=== PATIENT | male | born 1990 | race African-American/Black ===

== ENCOUNTER → 2023-04-07 11:22 | Outpatient (BNVA) | payer OTHER, SELFPAY | PROVIDERS: Visit Provider Physician Assistant ==

== ENCOUNTER 2023-05-03 10:47 | Outpatient (AMB) | payer OTHER, SELFPAY ==
--- NOTE | 2023-05-03 10:48 | A.OFFVIS_ITS ---
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 His goal is to get healthy. He reports first being concerned about her weight when he got to 400 lbs - last year. He has tried multiple methods of weight loss including gym time without permanent results. He lives with his parents. He works 3 jobs over 7 days per week. 3pm - 11 pm and then 11pm - 9am. He wakes at: 2pm bed at 9am Will drink Powerade and Mountain DEW only until about 9 pm. 9pm - Fast food - dbl cheeseburger, fries, chicken sandwich and large HiC. 11:30 pm- eat bag of candy and Powerade or Soda Alcohol intake: few times per year,tobacco: none, marijuana: none Exercise:went to track yesterday - walked 4 laps. Used to play football up to 2016. GILDARDO:0 ESS:12 GERD:0 QOL:60 PFSH Surgical History History of surgical removal of keloid Family History Mother No problems noted. Father No problems noted. Brother No problems noted. Brother No problems noted. Brother No problems noted. Sister No problems noted. Sister No problems noted. Sister No problems noted. Sister No problems noted. Social History Alcohol intake: never Patient Tobacco Use Status: Never used Tobacco Physical Exam Vital Signs: Last Vital Signs Temp 97.6 F 05/03/23 10:49 Pulse 89 05/03/23 10:49 BP 146/81 H 05/03/23 10:49 Pulse Ox 96 05/03/23 10:49 Oxygen Delivery Method Room Air 05/03/23 10:49 BMI result Body Mass Index 60.9 Const General: cooperative, no acute distress and well developed Nutritional Appearance: obese Orientation/consciousness: patient oriented x3 HEENT Head: Yes normal to inspection Neck Neck: Yes normal visual inspection Thyroid: Thyroid normal Resp Effort & Inspection: normal respiratory effort Auscultation: clear to auscultation bilaterally Cardio Rate: regular rate Rhythm: regular rhythm Heart sounds: S1 normal heart sound present, S2 normal heart sound present and no murmurs GI Inspection: No distended and Yes obesity Palpation (GI): Soft to palpation, nontender and no guarding Skin General skin exam: no rashes or lesions noted and other (warm and dry) Wounds: no wounds Hair: normal Neuro General: patient oriented x3 Extrem General: Yes no pedal edema and Yes no calf tenderness Psych Attitude: cooperative Thought process: Normal thought process present Thought content: Normal thought content present Insight: Good insight present (Psych) Judgement: Good judgement present (Psych) Assessment & Plan Assessment & Plan (1) Morbid obesity: Code(s): E66.01 - Morbid (severe) obesity due to excess calories Plan: This is a 32 yo man with morbid obesity who will start SWL program to prepare for bariatric surgery. Blood work and h pylori have been ordered. He is being scheduled for RD and BH initial consultations. He will start SWL classes and watch at 3 classes before her next appt with Yahaira. 1. Adequate sleep of 7-8 hours per night discussed - advised him to work less hours to be able to sleep and exercise enough. 2. Healthy meal plan - stop skipping meals, stop fast food and stop all sweetened drinks All meals/MR's need to take 20 minutes to complete 2:30 pm - 30 gram shake 5:30 pm - 30 gram shake 9 pm- dinner of 6 oz lean protein, 8 oz vegetable, 1 serving fruit -- needs to learn to cook his own meals 11:30 pm - bar or yogurt 2 am - shake 5 am - bar or yogurt 3 shakes 1 meal 2 bar or yogurt every day. Exercise - start with walking 30 minutes or doing LS 2 miles videos 5-7 d/week. Pt will purchase body composition analyzer Zoetouch, (recommended list given to patient) and weight herself weekly. Next appt with me in 3 weeks. Text me with any questions and weekly weights. Patient is morbidly obese and is not considered stable at this time.?I spent a total of 60 minutes reviewing/updating records, examining the patient and counseling the patient on weight management as detailed above. (2) G6PD deficiency: Code(s): D75.A - Qneuzlh-0-vnifplryc dehydrogenase (G6PD) deficiency without anemia (3) Pre-op evaluation: Code(s): Z01.818 - Encounter for other preprocedural examination (4) Daytime somnolence: Code(s): R40.0 - Somnolence Orders: Orders Vitamin B12 and Folate Today D75.A - Ctfaqxe-4-cqkujtklh dehydrogenase (G6PD) deficiency without anemia, E66.01 - Morbid (severe) obesity due to excess calories, Z01.818 - Encounter for other preprocedural examination Comprehensive Met. Panel Today D75.A - Vwcbwjv-7-ecmcqjsxx dehydrogenase (G6PD) deficiency without anemia, E66.01 - Morbid (severe) obesity due to excess calories, Z01.818 - Encounter for other preprocedural examination C Reactive Protein Today D75.A - Hdqvosy-8-xqmpqvwif dehydrogenase (G6PD) defi ciency without anemia, E66.01 - Morbid (severe) obesity due to excess calories, Z01.818 - Encounter for other preprocedural examination Ferritin Today D75.A - Wjtyyor-7-xgexbwizc dehydrogenase (G6PD) deficiency without anemia, E66.01 - Morbid (severe) obesity due to excess calories, Z01.818 - Encounter for other preprocedural examination Hemoglobin A1c Today D75.A - Dsphlvs-6-wztwhfwjd dehydrogenase (G6PD) deficiency without anemia, E66.01 - Morbid (severe) obesity due to excess calories, Z01.818 - Encounter for other preprocedural examination Insulin Today D75.A - Rfxrnsh-7-ynfzezsvn dehydrogenase (G6PD) deficiency without anemia, E66.01 - Morbid (severe) obesity due to excess calories, Z01.818 - Encounter for other preprocedural examination IRON PROFILE Today D75.A - Dgzefmn-5-zwugfdcof dehydrogenase (G6PD) deficiency without anemia, E66.01 - Morbid (severe) obesity due to excess calories, Z01.818 - Encounter for other preprocedural examination Lipid Panel Today D75.A - Xdwpdna-3-fyottyyyo dehydrogenase (G6PD) deficiency without anemia, E66.01 - Morbid (severe) obesity due to excess calories, Z01.818 - Encounter for other preprocedural examination PTHI Today D75.A - Lkpcrsb-6-odgkmfokp dehydrogenase (G6PD) deficiency without anemia, E66.01 - Morbid (severe) obesity due to excess calories, Z01.818 - Encounter for other preprocedural examination TSH reflex Free T4 Today D75.A - Rrqvnqw-3-iwryxqivg dehydrogenase (G6PD) deficiency without anemia, E66.01 - Morbid (severe) obesity due to excess calories, Z01.818 - Encounter for other preprocedural examination Vitamin A Today D75.A - Uvdvlfd-0-rsygnotad dehydrogenase (G6PD) deficiency without anemia, E66.01 - Morbid (severe) obesity due to excess calories, Z01.818 - Encounter for other preprocedural examination Vitamin B1 Today D75.A - Gcvfjfz-6-ykhrkzhsu dehydrogenase (G6PD) deficiency without anemia, E66.01 - Morbid (severe) obesity due to excess calories, Z01.818 - Encounter for other preprocedural examination Vitamin D 25-OH Total Today D75.A - Lfamrcp-0-zixmlambn dehydrogenase (G6PD) deficiency without anemia, E66.01 - Morbid (severe) obesity due to excess calories, Z01.818 - Encounter for other preprocedural examination Zinc Today D75.A - Pfvvqqd-1-mgyhpahtl dehydrogenase (G6PD) deficiency without anemia, E66.01 - Morbid (severe) obesity due to excess calories, Z01.818 - Encounter for other preprocedural examination Complete Blood Count Auto Diff Today D75.A - [place]-4-zbuuyrxsy dehydrogenase (G6PD) deficiency without anemia, E66.01 - Morbid (severe) obesity due to excess calories, Z01.818 - Encounter for other preprocedural examination RT home sleep study Today E66.01 - Morbid (severe) obesity due to excess calories, R40.0 - Somnolence Referrals Behavioral Health Referral D75.A - Wdspmlf-9-zsgydmxot dehydrogenase (G6PD) deficiency without anemia, E66.01 - Morbid (severe) obesity due to excess calories, Z01.818 - Encounter for other preprocedural examination Nutrition/Dietitian Referral D75.A - Epovbmj-3-mgnamqjkm dehydrogenase (G6PD) deficiency without anemia, E66.01 - Morbid (severe) obesity due to excess calories, Z01.818 - Encounter for other preprocedural examination Coding Level of Care Code New Pt Level 5 (98563) Diagnoses Morbid obesity E66.01 G6PD deficiency D75.A Pre-op evaluation Z01.818 Daytime somnolence R40.0
[2023-05-03 10:49] VITALS: BP 146/81; PULSE 89; TEMP 36.4; O2SAT 96; BMI 60.9
== END 2023-05-03 12:13 | disposition home or self-care (01) ==
PROVIDERS: Visit Provider Physician Assistant
DX: E66.01 Morbid (severe) obesity due to excess calories (principal); Z68.44 Body mass index [BMI] 60.0-69.9, adult; D75.A Glucose-6-phosphate dehydrogenase (G6PD) deficiency without anemia; R40.0 Somnolence
CPT/HCPCS: 99205

== ENCOUNTER → 2023-05-03 10:47 | Outpatient (BNVA) | payer OTHER, SELFPAY | PROVIDERS: Visit Provider Physician Assistant | DX: Z01.818 Encounter for other preprocedural examination (principal); E66.01 Morbid (severe) obesity due to excess calories; D75.A Glucose-6-phosphate dehydrogenase (G6PD) deficiency without anemia; R40.0 Somnolence; Z68.44 Body mass index [BMI] 60.0-69.9, adult | CPT/HCPCS: 99202 ==

== ENCOUNTER → 2023-06-15 11:10 | Outpatient (BNVA) | payer OTHER, SELFPAY | PROVIDERS: Visit Provider Dietitian, Registered | DX: E66.01 Morbid (severe) obesity due to excess calories (principal); D75.A Glucose-6-phosphate dehydrogenase (G6PD) deficiency without anemia; Z68.43 Body mass index [BMI] 50.0-59.9, adult; Z71.3 Dietary counseling and surveillance | CPT/HCPCS: 97802 ==

== ENCOUNTER 2023-06-17 10:34 | Outpatient (AMB) | payer OTHER, SELFPAY ==
--- NOTE | 2023-06-17 10:36 | A.OFFVIS_ITS ---
Intake VS Expanded 06/17/23 10:40 Height 6 ft 3 in Weight 479 lb 12.8 oz BMI 60.0 BP 171/75 H Blood Pressure Location Lt radial Blood Pressure Position Sitting Pulse 97 Pulse Source Pulse Oximeter Temp 97.3 F Temperature Source Tympanic Pulse Oximetry 95 Oxygen Delivery Method Room Air Body Fat 235.0 Body Fat Percentage 49.0 Free Fat Mass 244.8 Muscle Mass 233.0 Visceral Mass 38.0 Water Mass 188.8 BMR 3,759 Intake Visit Reasons: (OV) f/u SWL Allergies No Known Allergies Allergy (Verified 06/17/23 10:41) Medication List - Last Reconciled 06/17/23 by Teresa Bender PA-C cholecalciferol (vitamin D3) 1,250 mcg PO QWEEK HPI HPI Comments History of Present Illness Details This is the patients second appt for SWL. Starting weight was 478 lbs on 05/03/23. TBWL is 7.2 lbs. Meal plan:NOT following the plan we created 9:30 am - Premier shake 12 pm- quest bar 3pm - small bag of chips, water 7pm - chicken breast and mixed vegetables. water or Mountain Dew bag of candy after dinner Exercise plan: walks daily ? calories Pre op work up completed as follows: SWL classes - / appts -Karla 07/14 appts - follow up needs to be scheduled today H pylori - will do today Labs, CXR and ECG - not done yet ULS and UGI - not ordered yet - 07/14 COUNT INCLUDES THE [facility] Surgical History History of surgical removal of keloid Family History Mother No problems noted. Father No problems noted. Brother No problems noted. Brother No problems noted. Brother No problems noted. Sister No problems noted. Sister No problems noted. Sister No problems noted. Sister No problems noted. Social History Alcohol intake: never Patient Tobacco Use Status: Never used Tobacco Physical Exam Vital Signs: Last Vital Signs Temp 97.3 F 06/17/23 10:40 Pulse 97 06/17/23 10:40 BP 171/75 H 06/17/23 10:40 Pulse Ox 95 06/17/23 10:40 Oxygen Delivery Method Room Air 06/17/23 10:40 BMI result Body Mass Index 60.0 Assessment & Plan Assessment & Plan (1) Morbid obesity: Code(s): E66.01 - Morbid (severe) obesity due to excess calories Plan: Not following our meal plan or exercise plan yet and substituting candy and chips for meals. 9:30 a- shake 11:30 a- shake 2 pm- yogurt 4:30 -pm shake 7pm - meal (did not discuss specifics) 9-10 pm - bar Exercise - walk for 300 calories or LS 1 or 2 mile to start - 5d/week. Will text me exericse routine next week and I will adjust per his needs. I think he understands now that what he has been doing has not been working and he needs to change his habits. Next appt with me in 3 weeks. Patient is morbidly obese and is not considered stable at this time. I spent minutes in total with patient reviewing/updating records, examining the patient and counseling the patient on weight management as detailed above. Orders: Orders ECG 12 lead EKG Today E66.01 - Morbid (severe) obesity due to excess calories, Z01.818 - Encounter for other preprocedural examination XR chest 2V Today E66.01 - Morbid (severe) obesity due to excess calories, Z01.818 - Encounter for other preprocedural examination Coding Level of Care Code Est Pt Level 4 (79590) Diagnoses Morbid obesity E66.01
[2023-06-17 10:40] VITALS: BP 171/75; PULSE 97; TEMP 36.3; O2SAT 95; BMI 60.0
[2023-06-20 10:54] LABS: H Pylori Breath Test Negative (Negative)
== END 2023-06-17 11:10 | disposition home or self-care (01) ==
PROVIDERS: Visit Provider Physician Assistant
DX: E66.01 Morbid (severe) obesity due to excess calories (principal); Z68.44 Body mass index [BMI] 60.0-69.9, adult
CPT/HCPCS: 99214

== ENCOUNTER → 2023-06-17 10:34 | Outpatient (BNVA) | payer OTHER, SELFPAY | PROVIDERS: Visit Provider Physician Assistant | DX: E66.01 Morbid (severe) obesity due to excess calories (principal); Z11.0 Encounter for screening for intestinal infectious diseases; Z68.44 Body mass index [BMI] 60.0-69.9, adult | CPT/HCPCS: 83013; 99212 ==

== ENCOUNTER → 2023-07-07 10:47 | Outpatient (BNVA) | payer OTHER, SELFPAY | PROVIDERS: Visit Provider Dietitian, Registered | DX: E66.01 Morbid (severe) obesity due to excess calories (principal); Z68.43 Body mass index [BMI] 50.0-59.9, adult; Z71.3 Dietary counseling and surveillance | CPT/HCPCS: 97803 ==

== ENCOUNTER 2023-07-11 10:45 | Outpatient (AMB) | payer OTHER, SELFPAY ==
--- NOTE | 2023-07-11 10:11 | A.OFFWM_ITS ---
Intake Intake Visit Reasons: VIDEO Intake Allergies No Known Allergies Allergy (Verified 06/17/23 10:41) [facility] Surgical History History of surgical removal of keloid Family History Mother No problems noted. Father No problems noted. Brother No problems noted. Brother No problems noted. Brother No problems noted. Sister No problems noted. Sister No problems noted. Sister No problems noted. Sister No problems noted. Social History Alcohol intake: never Patient Tobacco Use Status: Never used Tobacco Behavioral Health Assessment Weight Management Therapy Therapy Notes Details Pt is a 32 years old male, who presents for initial behavioral health assessment as part of surgical weight-loss program. PT denied any history of mental health treatment and or past hospitalization/crisis for behavioral health. Denies any safety concerns around SI and/or self-other harm, also there is no history of substance use reported. There is also no evidence for stress/emotional-eating, and scores from BES suggest minimal risk for binge eating behavior. PHQ- scores also showed no active symptoms/concerns with depression. Mental status exam is withing normal limits, suggesting person's functioning is not impaired. At this time patient is cleared from the behavioral health standpoint. Presenting Concerns Referral Source WMP Provider. PT sees Teresa Irvin Reason for referral Completion of behavioral health assessment as part of process for weight-loss surgery. Precipitating Event Obesity and overall health. Living Situation Current Living Situation Relative's/Guardian's Mahi (PT lives with parents and d) Satisfied with current living situation? Yes Comments PT lives with his parents. Food/Weight/Diet Expectations of change PT wants to be at his healthy weight and adopt healthier eating habits. History/Relationship with food PT reports he tends to eat at night. Also used to reward himself with food at times (for example after a good week) . Example of meals before starting the program Breakfast: skip. at times would drink Gatorade or a soda. Lunch: @5pm Fast food ([facility] [employer]) Dinner: @11pm while at work - fast food. Snacks: Candy/cakes/any sweets between 6 pm and 12, then chips or any other snacks from 1 to 6 am. History/Relationship with weight PT reports he's always been big. He played football until college and when stop playing/going to the gym consistently in 2014 he started gaining more weight. Lowest weight in past 10 was about 300Lbs. highest weight was 512Lbs 2021. Binge Eating0 Do you frequently eat large amounts of food in short periods of time, not feeling physically hungry? No Do you feel out of control when you eat a large amount of food in a short period of time? No Do you eat large amounts of food rapidly and typically alone? No Night Eating Do you wake up at least once during the night to eat? No If you wake up in the night, do you find that it is necessary to eat something in order to fall back asleep? No Do you have little or no appetite in the morning and feel very hungry in the evening, often overeating between dinner and when you go to bed? Yes Social History Family history and relationship Single, no children. He has 2 brothers and 3 sister. He lives with parents and siblings. 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 Developmental history and status Had speech therapy in elementary. Social support Parents Community support None. Spiritism/Spirituality Zoroastrianism. Cultural/Ethnic information Black ( and [place]) Legal Involvement and History Current or historical involvement with the legal system? None. Education Highest grade completed PT is few credits short to finish bachelors in Business. Preferred learning style Verbal Currently enrolled in educational program? No Interested in further educational program? Yes Educational Interests/Skills Business. 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 No Meaningful activities Play drums Financial Situation Describe current financial situation Comfortable Service Service? No Mental Health and Addiction Treatment Current/Past substance abuse? No Current/Past addictive behavior concerns? No Psychiatric history Never in treatment. Denies any past/current safety concerns around SI, self/other-harm. Medical and Physical Health Summary Additional Medical History not covered in history None reported Sexual History concerns None reported Physical exam in the last year? Yes Pain Screening Current pain? No Pain in the last few months? No Medications Is the patient compliant with medications? Not applicable Does the patient have Ferreira Guardian in place? Not applicable Does the patient use complimentary health approaches? No Trauma/Abuse History History of trauma? No Questionnaires PHQ-9 Over the last 2 weeks, how often have you been bothered by any of the following problems? 1. Little interest or pleasure in doing things: not at all 2. Feeling down, depressed, or hopeless: not at all 3. Trouble falling or staying asleep, or sleeping too much: not at all 4. Feeling tired or having little energy: not at all 5. Poor appetite or overeating: not at all 6. Feeling bad about yourself - or that you are a failure or have let yourself or your family down: not at all 7. Trouble concentrating on things, such as reading the newspaper or watching television: several days 8. Moving or speaking so slowly that other people could have noticed. Or the opposite - being so fidgety or restless that you have been moving around a lot more than usual: not at all 9. Thoughts that you would be better off or of hurting yourself in some way: not at all Total score: 1 Depression Screening Interpretation: Negative 00185 - PHQ-9 Billing: Yes Source: Developed by Drs. Chai Ruiz, Rosalind Bond, Kalia Aviles and colleagues, with an educational lexy from [employer]. Binge Eating Scale Group 1 A. I don't feel self-conscious about my wt. or body size when I'm with others. B. I feel concerned about how I look to others, but it normally does not make me fell disappointed with myself C. I do get self-conscious about my appearance and wt. which makes me feel disappointed in myself. D. I feel very self-conscious about my wt. and frequently I feel intense shame and disgust for myself. I try to avoid social contacts because of my self- consciousness. Response Group 1: B Group 2 A. I don't have any difficulty eating slowly in the proper manner. B. Although I seem to gobble down foods, I don't end up feeling stuffed because of eating to much. C. At times, I tend to eat quickly and then, I feel uncomfortably full afterwards. D. I have the habit of bolting down my food, without really chewing it. When this happens I usually feel uncomfortably stuffed because I've eaten to much. Response Group 2: A Group 3 A. I feel capable to control my eating urges when I want to. B. I feel like I have failed to control my eating more than the average person. C. I feel utterly helpless when it comes to feeling in control of my eating urges. D. Because I feel so helpless about controlling my eating I have become very desperate about trying to get control. Response Group 3: A Group 4 A. I don't have the habit of eating when I'm bored. B. I sometimes eat when I'm bored, but often I'm able to get busy and get my mind off food. C. I have a regular habit of eating when I'm bored, but occasionally, I can use some other activity to get my mind off eating. D. I have a strong habit of eating when I'm bored. Nothing seems to help me breath the habit. Response Group 4: A Group 5 A. I'm usually physically hungry when I eat something. B. Occasionally, I eat something on impulse even though I really am not hungry. C. I have the regular habit of eating foods, that I might not really enjoy, to satisfy a hungry feeling even though physically, I don't need the food. D. Although I'm not physically hungry, I get a hungry feeling in my mouth that only seems to be satisfied when I eat a food, like sandwich, that fills my mouth. Sometimes, when I eat the food to satisfy my mouth hunger, I then spit the food out so I won't gain weight. Response Group 5: B Group 6 A. I don't feel any guilt or self-hate after I overeat. B. After I overeat, occasionally I feel guilt or self-hate. C. Almost all the time I experience strong guilt or self-hate after I overeat. Response Group 6: A Group 7 A. I don't lose total control of my eating when dieting even after periods when I overeat. B. Sometimes when I eat a forbidden food on a diet, I feel like I blew it and eat even more. C. Frequently, I have the habit of saying to myself, I've blown it now, why not go all the way, when I overeat on a diet. When that happens I eat more. D. I have a regular habit of starting a strict diets for myself but I break the diets by going on an eating binge. My life seems to be either a feast or famine. Response Group 7: B Group 8 A. I rarely eat so much food that I feel uncomfortably stuffed afterwards. B. Usually about once a month, I each such a quantity of food, I end up feeling very stuffed. C. I have regular periods during the month when I eat large amounts of food, either at mealtime or at snacks. D. I eat so much food that I regularly feel quite uncomfortable after eating and sometimes a bit nauseous. Response Group 8: A Group 9 A. My level of calorie intake does not go up very high or go down very low on a regular basis. B. Sometimes after I overeat, I will try to reduce my caloric intake to almost nothing to compensate for the excess calories I've eaten. C. I have a regular habit of overeating during the night. It seems that my routine is not to be hungry in the morning but overeat in the evening. D. In my adult years, I have had week-long periods where I practically starve myself. This follows periods when I overeat. It seems I live a life of either feast or famine. Response Group 9: A Group 10 A. I usually am able to stop eating when I want to. I know when enough is enough. B. Every so often, I experience a compulsion to eat which I can't seem to control. C. Frequently, I experience strong urges to eat which I seem unable to control, but at other times I can control my eating urges. D. I feel incapable of controlling urges to eat. I have a fear of not being able to stop eating voluntarily. Response Group 10: A Group 11 A. I don't have any problem stopping eating when I feel full. B. I usually can stop eating when I feel full but occasionally overeat leaving me feeling uncomfortably stuffed. C. I have a problem stopping eating once I start and usually I feel uncomfortably stuffed after I eat a meal. D. Because I have a problem not being able to stop eating when I want, I sometimes have to induce vomiting to relieve my stuffed feeling. Response Group 11: A Group 12 A. I seem to eat just as much when I'm with others, Family social gatherings as when I'm by myself. B. Sometimes, when I'm with other persons, I don't eat as much as I want to eat because I'm self-conscious about my eating. C. Frequently, I eat only a small amount of food when others are present, because I'm very embarrassed about my eating. D. I feel so ashamed about overeating that I pick times to overeat when I know no one will see me. I feel like a closet eater. Response Group 12: A Group 13 A. I eat three meals a day with only an occasional between meal snack. B. I eat 3 meals a day, but I also normally snack between meals. C. When I am snacking heavily, I get in the habit of skipping regular meals. D. There are regular periods when I seem to be continually eating, with no planned meals. Response Group 13: C Group 14 A. I don't think much about trying to control unwanted eating urges. B. At least some of the time, I feel my thoughts are pre-occupied with trying to control my eating urges. C. I feel that frequently I spend much time thinking about how much I ate or about trying not to eat anymore. D. It seems to me that most of my waking hours are pre-occupied by thoughts ab out eating or not eating. I feel like I'm constantly struggling not to eat. Response Group 14: A Group 15 A. I don't think about food a great deal. B. I have strong craving for food but they last only for brief periods of time. C. I have days when I can't seem to think about anything else but food. D. Most of my days seem to be pre-occupied with thoughts about food. I feel like I live to eat. Response Group 15: A Group 16 A. I usually know whether or not I'm physically hungry. I take the right portion of food to satisfy me. B. Occasionally, I feel uncertain about knowing whether or not I'm physically hungry. A these times it's hard to know how much food I should take to satisfy me. C. Even though I might know how many calories I should eat, I don't have any idea what is a normal amount of food for me. Response Group 16: A Binge Eating Score: 5 Score less than 17 Minimal Risk Score between 18-26 Moderate Risk Score between 27-46 High Risk Assessment & Plan Assessment & Plan (1) Eating disorder: Code(s): F50.9 - Eating disorder, unspecified Qualifiers: Eating disorder type: unspecified eating disorder Qualified Code(s): F50.9 - Eating disorder, unspecified Plan: After completing the assessment and comparing scores from Binge eating scale and PHQ9, at this time, this sports writer has no concerns patient's mental status. Client is cleared and there is no need for follow up. Pt has been provided with strategies for mindful eating, organization tips to create steady meal schedule following program's meal plan and exercise expectations. He was advised about available resources if ever in need to access additional support and has been encouraged client to participate in post-op groups. Telehealth Telehealth Location of provider rendering services: other (Home office. [place], [place].) Location of patient: address on file Patient Identification confirmed using: Name, : Yes Telehealth method: video Patient verbally consented to treatment: Yes Patient verbally consented to billing insurance company: Yes Patient informed of any privacy concerns related to visit: Yes Minutes spent on Phone/Video with Pt.: 60 Coding Level of Care Code New Pt Tele Psytx >53 mins (24987) Patient Type New Diagnoses Eating disorder, unspecified type F50.9 Eating disorder type: unspecified eating disorder Time Spent (min) 60
--- OUTSIDE RECORDS SUMMARY | 2023-07-11 10:46 | XMS_ITS | Continuity of Care Document ---
Author Name Unknown Organization [facility] ter Address [address] [place] [id number]- Care Team Providers Care Supervisor Cell Operation Name Role Phone Teresa MASTERS, Clark Peterson Primary Care Physician Encounter [facility] Date(s): 01/20/20 - 01/29/[address] [address]- [facility] Encounter Diagnosis Pneumonia(Final) - 01/20/20 Discharge Disposition: A-D/C Home Attending Physician: Jessee Faust MD Admitting Physician: Benito King MD Referring Physician: Not on Staff, Referring MD Allergies, Adverse Reactions, Alerts No Known Medication Allergies Medications No Known Medications Problem List Condition Effective Dates Status Health Status Inform ant Viral pneumonia(Confirmed) Active Results Radiology Reports * Exam Date Time Procedure Performing Provider Status 01/25/20 8:57 AM Chest Portable Yuliet Holley ( Verified) Notes: (Chest Portable) Reason For Exam: Shortness of Breath RESULT: Chest Portable Chest Portable INDICATION/CLINICAL QUESTION: Hypoxic respiratory failure. Positive COVID 19 test. TECHNIQUE: AP chest 0837 hours 01/25/2020. COMPARISON: 01/20/2020. FINDINGS: LINES AND TUBES: Absent. LUNGS AND PLEURA: Patchy opacities mid and lower lung similar to prior examination. No effusion or pneumothorax. HEART AND MEDIASTINAL CONTOURS: Normal. BONES AND SOFT TISSUES: No acute abnormality.. IMPRESSION: 1. Bilateral lung disease consistent with the patient's known COVID 19 infection. There has been no definite change since the prior examination. 2. No pleural effusion. WSN: [id number] Ordering Physician: Jessee Faust Dictated By: Maciel Merlos MD Dictated Date/Time: 01/25/20 9:01 am Reviewed By: Maciel Merlos MD Signed By: Maciel Merlos MD Signed Date/Time: 01/25/20 9:01 am Transcribed By: LUIGI Transcribed Date/Time: 01/25/20 8:58 am * Exam Date Time Procedure Performing Provider Status 01/20/20 9:24 PM Chest Portable Margaret Zhang; Jose Alfredo (Cristela ified) Notes: (Chest Portable) Reason For Exam: Shortness of Breath RESULT: Chest Portable Chest Portable Reason: Shortness of Breath; Clinical Question(s): CHF COMPARISON: None. FINDINGS: LINES AND TUBES: None. LUNGS AND PLEURA: Low lung volumes with mild basilar atelectasis. There is mixed interstitial-alveolar opacity overlying both lower lung rivera, worse on the right where the hemidiaphragm is obscured. No pleural effusion. No pneumothorax. HEART, MEDIASTINUM AND RAHAT: Heart is normal in size. Normal mediastinal and hilar contour. BONES AND SOFT TISSUES: No acute abnormality. IMPRESSION: Bilateral lower lobe pneumonia. A Terrell message has been communicated via the [employer] system on 01/20/2020 9:28 PM, Message ID [id number]. WSN: [id number] Ordering Physician: Neha Parra Dictated By: Nilesh Watkins MD Dictated Date/Time: 01/20/20 9:28 pm Reviewed By: Nilesh Watkins MD Signed By: iNlesh Watkins MD Signed Date/Time: 01/20/20 9:28 pm Transcribed By: LUIGI Transcribed Date/Time: 01/20/20 9:26 pm Vital Signs Most recent to oldest [Reference Range]: 1 2 3 Height 191 cm (01/29/20 2:21 PM) 191 cm (01/29/20 9:25 AM) 191 cm (01/29/20 4:42 AM) Weight 172 kg (01/22/20 2:27 PM) 172.7 kg (01/22/20 8:49 AM) 175 kg (01/21/20 2:52 PM) Oxygen Saturation [94-100 %] 95 % (01/29/20 2:21 PM) 95 % (01/29/20 9:25 AM) 97 % (01/29/20 4:42 AM) Pulse Rate [55-90 bpm] 94 bpm *H* (01/29/20 2:21 PM) 94 bpm *H* (01/29/20 9:25 AM) 85 bpm (01/29/20 4:42 AM) Body Mass Index [18.5-24.99] 47.34 *>HHI* (01/22/20 8:49 AM) 47.97 *>HHI* (01/21/20 2:52 PM) Blood Pressure [90-138/55-84 mm Hg] 114/62mm Hg (01/29/20 2:21 PM) 141/69mm Hg *H* (01/29/20 9:25 AM) 110/64mm Hg (01/29/20 4:42 AM) Respiratory Rate [16-30 br/min] 19 br/min (01/29/20 2:21 PM) 18 br/min (01/29/20 9:25 AM) 22 br/min (01/29/20 4:42 AM) Temperature [96.8-100.4 DegF] 98.6 DegF (01/29/20 2:21 PM) 97.8 DegF (01/29/20 9:25 AM) 97.7 DegF (01/29/20 4:42 AM) Liters per Minute 1 L/min (01/29/20 9:25 AM) 2.5 L/min (01/29/20 4:42 AM) 3 L/min (01/28/20 8:27 PM) Mode of Delivery (Oxygen) Room air (01/29/20 2:21 PM) Nasal cannula (01/29/20 9:25 AM) Nasal cannula (01/29/20 4:42 AM) Blood pressure sites Arm, left (01/29/20 2:21 PM) Arm, left (01/29/20 4:42 AM) Arm, left (01/28/20 8:27 PM) Temperature Route Oral (01/29/20 2:21 PM) Oral (01/29/20 9:25 AM) Oral (01/29/20 4:42 AM) Dry Weight 175 kg (01/21/20 2:52 PM) Weight Obtained Via Patient/family stated (01/22/20 2:27 PM) Bed scale (01/22/20 8:49 AM) Sensory deficits None (01/21/20 2:52 PM) Mobility assistance Other: stand by (01/22/20 6:00 PM) Independent, Partial assistance (01/21/20 2:52 PM) Social History Social History Type Response Smoking Status Never smoker entered on: 05/05/16 Sex
== END 2023-07-11 11:00 | disposition home or self-care (01) ==
LOC: HO.HBST 10:45
PROVIDERS: Visit Provider Counselor Mental Health
DX: F50.9 Eating disorder, unspecified (principal)
CPT/HCPCS: 90837

== ENCOUNTER → 2023-07-11 10:45 | Outpatient (BNVA) | payer OTHER, SELFPAY | PROVIDERS: Visit Provider Counselor Mental Health ==

== ENCOUNTER → 2023-07-13 10:25 | Outpatient (REF) | payer OTHER, SELFPAY ==
--- NOTE | ~2023-07-13 | XR_ITS ---
EXAMINATION: XR CHEST CLINICAL INFORMATION: Patient with morbid obesity COMPARISON: None available. TECHNIQUE: 2 views of the chest were obtained. FINDINGS: Examination is technically limited due to obesity but revealed no infiltrates nodules or pleural effusion. Cardiomediastinal silhouette is XR/XR chest 2V IMPRESSION: No active cardiopulmonary disease
--- NOTE | 2023-07-13 10:46 | ECG_ITS ---
Test Reason : morbid obesity Blood Pressure : / mmHG Vent. Rate : 076 BPM Atrial Rate : 076 BPM P-R Int : 192 ms QRS Dur : 092 ms QT Int : 408 ms P-R-T Axes : 030 -01 026 degrees QTc Int : 459 ms Normal sinus rhythm Normal ECG No previous ECGs available Referred By: Teresa Bender Electronically Signed By:YARY CALABRESE
[2023-07-13 10:55] LABS: MANUAL DIFF FLAG NO
[2023-07-13 11:23] LABS: Basophils Absolute Auto 0.1 X10*3/uL (0.0-0.2); Basophils Percent Auto 0.4 % (0-2); Eosinophils Absolute Auto 0.1 X10*3/uL (0.0-0.4); Eosinophils Percent Auto 0.7 % (0-4); Hematocrit 42.3 % (42.0-52.0); Hemoglobin 13.1 g/dl (14.0-18.0); Imm Gran Abs Auto 0.08 X10*3/uL (0.00-0.03); Imm Gran Pct Auto 0.5 % (0.0-0.4); Lymphocytes Absolute Auto 2.1 X10*3/uL (1.2-4.9); Lymphocytes Percent Auto 13.2 % (20-40); Mean Corpuscular Hemoglobin 29.8 pg (27.0-33.0); Mean Corpuscular Volume 96.4 fL (80.0-98.0); Mean Platelet Volume 9.3 fL (9.4-12.4); Monocytes Percent Auto 6.3 % (2-11); Neutrophils Absolute Auto 12.7 x10*3/uL (2.0-8.3); Neutrophils Percent Auto 78.9 % (45-73); Platelet Count 432 X10*3/uL (160-400); Red Blood Count 4.39 X10*6/uL (4.60-5.80); Red Cell Distribution Width 12.5 % (11.0-16.0); White Blood Count 16.1 X10*3/uL (4.8-10.8)
[2023-07-13 12:00] LABS: Estimated Average Glucose 80 mg/dL; Hemoglobin A1c % 4.4 % (<6.0)
[2023-07-13 13:23] LABS: Alanine Aminotransferase 36 U/L (0-40); Albumin Level 3.7 g/dL (3.5-5.0); Alkaline Phosphatase 87 U/L (39-117); Anion Gap 12 (12-20); Aspartate Amino Transferase 30 U/L (5-37); Bilirubin Total 0.5 mg/dL (0.0-1.0); Blood Urea Nitrogen 17 mg/dL (9-16); C Reactive Protein 8.38 mg/dL (< or = 0.50); Calcium 9.5 mg/dL (8.4-10.2); Carbon Dioxide 26 mmol/L (22-29); Chloride 107 mmol/L (96-108); Cholesterol 163 mg/dL (<200); Estimated Glomerular Filt Rate > 60; Glucose Random 85 mg/dL (60-115); HDL Cholesterol 37 mg/dL (>40); Iron 31 mcg/dL (45-160); LDL Cholesterol Calculated 111 mg/dL (<100); Percent Iron Saturation 15 % (15-50); Potassium 4.3 mmol/L (3.3-5.1); Sodium 141 mmol/L (135-145); Total Iron Binding Capacity 212 mcg/dL (228-428); Total Protein 8.3 g/dL (6.5-8.0); Triglycerides 76 mg/dL (<150); Unsaturated Iron Binding 181 ug/dL
[2023-07-13 13:30] LABS: Ferritin 353 ng/mL (20-250); Insulin 57 uU/mL (2-29); TSH reflex Free T4 1.12 uIU/mL (0.32-4.0)
[2023-07-13 13:49] LABS: Folate 5.1 ng/mL (> or = 4.0); Vitamin B12 665 pg/mL (200-900)
[2023-07-14 16:19] LABS: Calcium (PTHI) 9.3 mg/dL (8.6-10.3); PTHI 25 pg/mL (16-77)
[2023-07-16 22:48] LABS: Zinc 71 mcg/dL (60-130)
[2023-07-17 14:57] LABS: Vitamin B1 <6 nmol/L (8-30)
[2023-07-19 10:43] LABS: Vitamin A 35 mcg/dL (38-98)
== END ==
LOC: HO.SL 10:25
PROVIDERS: Visit Provider Physician Assistant
DX: Z01.818 Encounter for other preprocedural examination (principal); R40.0 Somnolence; D75.A Glucose-6-phosphate dehydrogenase (G6PD) deficiency without anemia; E66.01 Morbid (severe) obesity due to excess calories; G47.33 Obstructive sleep apnea (adult) (pediatric)
CPT/HCPCS: 36415; 71046; 80053; 80061; 82306; 82607; 82728; 82746; 83036; 83525; 83540; 83970; 84425; 84443; 84590; 84630; 85025; 86140; 93005; 95806

== ENCOUNTER → 2023-07-13 10:40 | Outpatient (BNV) | payer OTHER, SELFPAY | PROVIDERS: Visit Provider Internal Medicine | DX: G47.33 Obstructive sleep apnea (adult) (pediatric) (principal) | CPT/HCPCS: 95806 ==

== ENCOUNTER 2023-08-12 10:30 | Outpatient (AMB) | payer OTHER, SELFPAY ==
--- NOTE | 2023-08-12 10:14 | A.OFFVIS_ITS ---
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 Exercise - 2 mile walks M-F , 43 minutes and getting easier, has gym membership Meal plan - only drinks seltzer water, very happy with meal plan 9am - shake 11am - bar or yogurt 2pm- shake 4pm - shake' 7pm- meal of chicken breast (not sure of portion size) and green beans this week. 9am - yogurt Pre op work up completed as follows: SWL classes - 8 appts -Karla 07/14, cleared RD appts - follow up willbe scheduled today H pylori - negative Labs - anemia, B1, Vit A and Vit D deficiencies CXR and ECG - both NAD ULS and UGI - not ordered yet SS - 07/14, mild to moderate ZORAN, changing sleep positions and weight loss may be enough treatment per Dr Manning. [facility] Surgical History History of surgical removal of keloid Family History Mother No problems noted. Father No problems noted. Brother No problems noted. Brother No problems noted. Brother No problems noted. Sister No problems noted. Sister No problems noted. Sister No problems noted. Sister No problems noted. Social History Alcohol intake: never Patient Tobacco Use Status: Never used Tobacco Assessment & Plan Assessment & Plan (1) Morbid obesity: Code(s): E66.01 - Morbid (severe) obesity due to excess calories Plan: Great progress with 35 lbs lost, 7%. UGI and ULS ordered today. Exercise - change to Treadmill 5-6 d/week, speed 3.0, incline 2-7, changing every 3 minutes - 400 calories each day Meal plan - measure dinner meal in 12 forks each of protein and veg Discussed SS resutls - will continue to adjust sleep postions, feels rested during the day and sleeps well. Next appt with me in 3 weeks, Patient is still morbidly obese and is not considered stable at this time. I spent 28 minutes in total speaking with the patient via video conference counseling , reviewing records and charting in patients chart. . (2) G6PD deficiency: Code(s): D75.A - Abtoiwz-7-fhlvtampx dehydrogenase (G6PD) deficiency without anemia (3) Daytime somnolence: Code(s): R40.0 - Somnolence Orders: Orders US abdomen comp w elastography Today E66.01 - Morbid (severe) obesity due to excess calories, Z01.818 - Encounter for other preprocedural examination [place] upper GI w air Today E66.01 - Morbid (severe) obesity due to excess calories, Z01.818 - Encounter for other preprocedural examination Telehealth Telehealth Location of provider rendering services: practice address Location of patient: address on file Patient Identification confirmed using: Name, : Yes Telehealth method: video Patient verbally consented to treatment: Yes Patient verbally consented to billing insurance company: Yes Patient informed of any privacy concerns related to visit: Yes Coding Level of Care Code Tele Est Pt Level 4 (01526) Diagnoses Morbid obesity E66.01 G6PD deficiency D75.A Daytime somnolence R40.0
[2023-08-12 10:42] VITALS: BMI 56.5
== END 2023-08-12 10:56 | disposition home or self-care (01) ==
LOC: HO.HBS 10:54
PROVIDERS: Visit Provider Physician Assistant
DX: E66.01 Morbid (severe) obesity due to excess calories (principal); Z68.43 Body mass index [BMI] 50.0-59.9, adult; R40.0 Somnolence
CPT/HCPCS: 99214

== ENCOUNTER → 2023-08-12 10:30 | Outpatient (BNVA) | payer OTHER, SELFPAY | PROVIDERS: Visit Provider Physician Assistant | DX: E66.01 Morbid (severe) obesity due to excess calories (principal); Z01.818 Encounter for other preprocedural examination ==

== ENCOUNTER → 2025-02-15 15:28 | Outpatient (BNVA) | payer OTHER, SELFPAY | PROVIDERS: PCP Physician Assistant Medical; Visit Provider Physician Assistant Surgical ==

== ENCOUNTER 2025-02-20 08:10 | Outpatient (AMB) | payer OTHER, SELFPAY ==
--- OUTSIDE RECORDS SUMMARY | 2025-02-20 08:19 | XMS_ITS | Clinical Summary ---
Author Organization [address] Address [address] [place] [phone] Phone Care Team Providers Care Preschool Assistant Teacher Name Role Phone Davion Zamora Primary Care Provider [phone] Allergies No known active allergies Medications ciclopirox (PENLAC) 8 % solution Apply to affected area daily, remove with rubbing alcohol every 7 days Active semaglutide (Wegovy) 0.25 mg/0.5 mL injection penIndications: Screen for STD (sexually transmitted disease),Routin e general medical examination at a health care facility,Vitami n D deficiency,Subc linical hypothyroidism, Acute pain of right shoulder Inject 0.25 mg under the skin every 7 (seven) days. 2 mL 3 01/26/20 25 Active diclofenac (VOLTAREN) 1 % topical gel Apply 4 gram four times daily to affected joint 100 g 3 01/26/20 25 Active ergocalciferol (VITAMIN D-2) 1,250 mcg (50,000 unit) capsule Take 1 capsule (50,000 Units total) by mouth 1 (one) time per week. 12 capsule 3 01/30/20 25 Active ergocalciferol (VITAMIN D-2) 1,250 mcg (50,000 unit) capsule TAKE ONE CAPSULE BY MOUTH ONCE A WEEK FOR 8 WEEKS 025 Discontinued Active Problems Problem Noted Date Diagnosed Date Vitamin D deficiency 03/23/2023 Keloid 01/18/2023 Subclinical hypothyroidism 02/02/2021 Stutter 01/21/2021 G6PD deficiency 02/18/2020 Prolonged Q-T interval on ECG 02/18/2020 COVID-19 02/15/2020 Overview (10/18/2024): [facility] admission 01/20/20-01/29/20 Encounters Date Type Department Care Team Description 01/29/2025 Telephone Adult Medicine [facility] [address] [place] [phone] Davion Zamora PA 01/25/2025 3:36 PM EDT - 01/25/2025 11:59 PM EDT Hospital Encounter [address] [phone] Routine general medical examination at a health care facility; Screen for STD (sexually transmitted disease); Morbid obesity ([facility] V24, CMS/[facility] V28); Vitamin D deficiency; Subclinical hypothyroidism; Acute pain of right shoulder Discharge Disposition: Home or Self Care 01/25/2025 3:00 PM EDT Office Visit Adult Medicine [address] [phone] Davion Zamora, PA Routine general medical examination at a health care facility (Primary Dx); Screen for STD (sexually transmitted disease); Morbid obesity (CMS/[facility] V24, CMS/[facility] V28); Vitamin D deficiency; Subclinical hypothyroidism; Acute pain of right shoulder from Last 3 Months Immunizations Name Administration Dates Next Due Tdap Tetanus diptheria acell ular pertussis (Boostrix; Adacel) 7yo and older 01/21/2021 Surgical History Surgery Date Site/Laterality Comments OTHER SURGICAL HISTORY 2022 PROCEDURE: SKIN CYST; COMMENT: skin lesion/keloid removed FINGER right hand finger tendon injury jun 2024 and oct 2024 Medical History Medical History Date Comments Covid-19 DX:COVID-19 Morbid obesity with BMI of 6 0.0-69.9, adult (CMS/HCC V24, CMS/[facility] V28) DX:Morbid obesity wit h BMI of 60.0-69.9, adult ([facility]) Family History Medical History Relation Name Comments No Known Problems Brother x3 healthy brothers Hypertension Father No Known Problems Maternal Grandfather No Known Problems Maternal Grandmother No Known Problems Mother No Known Problems Paternal Grandfather Lung cancer Paternal Grandmother smoking No Known Problems Sister x4 healthy sisters Relation Name Status Comments Brother Alive Father Alive Maternal Grandfather Maternal Grandmother Mother Alive Paternal Grandfather Paternal Grandmother Sister Alive Social History Tobacco Use Types Packs/Day Years Used Date Smoking Tobacco: Never Smokeless Tobacco: Never Tobacco Cessation:Counseling Given: Not Answered Alcohol Use Standard Drinks/Week Comments Yes 0 (1 standard drink = 0.6 oz pur e alcohol) occ Housing Instability Answer Date Recorde d Are you worried that in the next 2 months you may not have stable housing? No 01/25/2025 Food Access & Nutrition Answer Date Rec orded Do you have access to a vari ety of food including fruits and vegetables? Yes 01/25/2025 Access to Healthcare Answer Date Record ed Within the last 3 months, ho praful many times did you visit the emergency department for your medical care? 0 01/25/2025 Health Literacy Answer Date Recorded How often do you need to hav e someone help you when you read instructions, pamphlets, or other written material from your doctor or pharmacy? Never 01/25/2025 Caregiver: How often do you need to have someone help you when you read instructions, pamphlets, or other written material from your doctor or pharmacy? Not on file 01/25/2025 Financial Risk Answer Date Recorded How hard is it for you to pa y for the very basics like food, housing, medical care, and air conditioning / heating? Not very hard 01/25/2025 Transportation Answer Date Recorded Has the lack of transportati on kept you from meetings, work, or from getting things needed for daily living? No Has the lack of transportati on kept you from medical appointments or from getting medications? No 01/25/2025 Social Isolation Answer Date Recorded How often do you feel lonely or isolated from th ose around you? Never 01/25/2025 Food Risk Answer Date Recorded Within the past 12 months we worried whether our food would run out before we got money to buy more. Never true 01/25/2025 Within the past 12 months th e food we bought just didn't last and we didn't have money to get more. Never true 01/25/2025 Dependent Care Answer Date Recorded Do you need help finding or paying for care for your loved ones. For example, director of early childhood education or elderly care for an older adult? No 01/25/2025 Education Answer Date Recorded Do you think completing more education or training, like finishing a GED, going to college, or learning a trade, would be helpful for you? Yes 01/25/2025 Employment and Income Answer Date Recor ded During the last four weeks, have you been actively looking for work? No 01/25/2025 Living Situation Answer Date Recorded What is your living situation? 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 on file Not on file Not on fi le Obstetrics History Last Filed Vital Signs Vital Sign Reading Time Taken Comments Blood Pressure 132/78 01/25/2025 3:03 PM EDT Pulse 104 01/25/2025 3:03 PM EDT Temperature 36.5 ??C (97.7 ??F) 01/25/2025 3:03 PM ED T Respiratory Rate 18 01/25/2025 3:03 PM EDT Oxygen Saturation - - Inhaled Oxygen Concentration - - Weight 217 kg (478 lb) 01/25/2025 3:03 PM EDT Height 190.5 cm (6' 3 ) 01/25/2025 3:03 PM EDT Body Mass Index 59.75 01/25/2025 3:03 PM EDT Plan of Treatment Upcoming Encounters Date Type Department Care Team (Late st Contact Info) Description 01/27/2026 3:00 PM EDT Office Visit Adult Medicine [facility] [address] [place] [phone] Davion Zamora PA [address] [place] [address] Health Maintenance Due Date Last Done Comments Hepatitis B Vaccines (1 of 3 - 19+ 3-dose series) 2011 COVID-19 Vaccine (2023-2 5 season) 2024 Depression Screening 01/25/2026 01/25/2025 Social Influencers of Health Screening 01/25/2026 01/25/2025 Cholesterol Screening (Lipid Panel) 01/25/2030 01/25/2025, 03/23/2023 DTaP,Tdap,and Td Vaccines (2 - Td or Tdap) 01/21/2031 01/21/2021 Influenza Vaccine Completed 08/14/2024, 08/13/2023, 08/03/2021 HIV Screening Completed 01/25/2025, 01/26/2021 Hepatitis C Screening Completed 01/25/2025 , 01/26/2021 HIB Vaccines Aged Out No longer eligi ble based on patient's age to complete this topic HPV Vaccines Aged Out No longer eligi ble based on patient's age to complete this topic Hepatitis A Vaccines Aged Out No long er eligible based on patient's age to complete this topic IPV Vaccines Aged Out No longer eligi ble based on patient's age to complete this topic MMR Vaccines Aged Out No longer eligi ble based on patient's age to complete this topic Meningococcal ACWY Vaccine Aged Out N o longer eligible based on patient's age to complete this topic Meningococcal B Vaccine Aged Out No l onger eligible based on patient's age to complete this topic Pneumococcal Vaccine: Pediatrics (0 to 5 Years) and At-Risk Patients (6 to 64 Years) Aged Out No longer eligible b ased on patient's age to complete this topic RSV Immunization Patients Under 20 months Aged Out No longer eligible b ased on patient's age to complete this topic Varicella Vaccines Aged Out No longer eligible based on patient's age to complete this topic Procedures Procedure Name Priority Date/Time Associated Diagnosis Comments CBC WITH AUTO DIFFERENTIAL Routine 01/25/2025 3:57 PM EDT Screen for STD (sexually transmitted disease) Routine general medical examination at a health care facility Vitamin D deficiency Subclinical hypothyroidism Acute pain of right shoulder COMPREHENSIVE METABOLIC PANEL Routine 01/25/2025 3:57 PM EDT Screen for STD (sexually transmitted disease) Routine general medical examination at a health care facility Vitamin D deficiency Subclinical hypothyroidism Acute pain of right shoulder VITAMIN D 25 HYDROXY Routine 01/25/2025 3:57 PM EDT Screen for STD (sexually transmitted disease) Routine general medical examination at a health care facility Vitamin D deficiency Subclinical hypothyroidism Acute pain of right shoulder THYROID STIMULATING HORMONE WITH REFLEX TO FREE T4 AND FREE T3 Routine 01/25/2025 3:57 PM EDT Screen for STD (sexually transmitted disease) Routine general medical examination at a health care facility Vitamin D deficiency Subclinical hypothyroidism Acute pain of right shoulder CBC AND DIFFERENTIAL Routine 01/25/2025 3:57 PM EDT Screen for STD (sexually transmitted disease) Routine general medical examination at a health care facility Vitamin D deficiency Subclinical hypothyroidism Acute pain of right shoulder TREPONEMA PALLIDUM ANTIBODY WITH REFLEX TO RPR AND PARTICLE AGGLUTINATION Routine 01/25/2025 3:57 PM EDT Screen for STD (sexually transmitted disease) HIV 1, 2 ANTIBODY, P24 ANTIGEN WITH REFLEX TO DIFFERENTIATION Routine 01/25/2025 3:57 PM EDT Screen for STD (sexually transmitted disease) HEPATITIS C ANTIBODY Routine 01/25/2025 3:57 PM EDT Screen for STD (sexually transmitted disease) HERPES SIMPLEX VIRUS 1 AND 2, IGG Routine 01/25/2025 3:57 PM EDT Screen for STD (sexually transmitted disease) Routine general medical examination at a health care facility Vitamin D deficiency Subclinical hypothyroidism Acute pain of right shoulder LIPID PANEL WITH REFLEX TO DIRECT LDL Routine 01/25/2025 3:57 PM EDT Screen for STD (sexually transmitted disease) Routine general medical examination at a health care facility Vitamin D deficiency Subclinical hypothyroidism Acute pain of right shoulder CHLAMYDIA TRACHOMATIS AND NEISSERIA GONORRHOEAE PCR Routine 01/25/2025 3:57 PM EDT Screen for STD (sexually transmitted disease) XR SHOULDER 2+ VIEWS RIGHT Routine 01/25/2025 3:46 PM EDT Routine general medical examination at a health care facility Screen for STD (sexually transmitted disease) Morbid obesity (CMS/HCC V24, CMS/HCC V28) Vitamin D deficiency Subclinical hypothyroidism Acute pain of right shoulder from Last 3 Months Results * Hepatitis C antibody (01/25/2025 3:57 PM EDT) Pathologist [facility] Hepatitis C Antibody Negative Negative LAB CHEMISTRY METHOD 01/25/2025 7:32 PM EDT [facility] Blood Venous blood specimen / Unknown Venipuncture / Unknown 01/25/2025 3:57 PM EDT 01/25/2025 3:57 PM EDT [facility] Manuelito Zamora [place] LAB BLOOD ORDERABLES Nadege l Result Performing Organization Address [facility]/ZIP Co de Phone Number [facility] [address] [place] [address], [place] [phone] * HIV 1,2 antibody, p24 antigen with reflex to differentiation (01/25/2025 3:57 PM EDT) [facility] HIV Combo AB/AG Negative Negative LAB CHEMISTRY METHOD 01/25/2025 7:32 PM EDT [facility] Blood Venous blood specimen / Unknown Venipuncture / Unknown 01/25/2025 3:57 PM EDT 01/25/2025 3:57 PM EDT Narrative [facility] - 01/25/2025 7:32 PM EDT This assay is a 4th generation assay allowing for earlier detection of HIV infection by detecting the presence of the HIV-1 p24 antigen as well as the traditional antibodies to HIV type 1 (including group O) and type 2. ??Use of a 4th generation assay is the current CDC recommendation for HIV screening. Davion Zamora [place] LAB BLOOD ORDERABLES Nadege l Result Performing Organization Address City/[facility]/ZIP Co de Phone Number [facility] [address] [place] [address], [place] [phone] * Treponema pallidum antibody with reflex to RPR and particle agglutination (01/25/2025 3:57 PM EDT) T. Pallidum Antibodies Negative Negative LAB CHEMISTRY METHOD 01/25/2025 7:04 PM EDT [facility] Blood Venous blood specimen / Unknown Venipuncture / Unknown 01/25/2025 3:57 PM EDT 01/25/2025 3:57 PM EDT Davion EL LAB BLOOD ORDERABLES Nadege l Result Performing Organization Address City/[facility]/ZIP Co de Phone Number [facility] [address] [place] [address], [place] [phone] * Thyroid stimulating hormone with reflex to free t4 and free t3 (01/25/2025 3:57 PM EDT) [facility] TSH 2.30 0.40 - 4.00 mcIU/mL LAB CHEMISTRY METHOD 01/25/2025 6:53 PM EDT [facility] Blood Venous blood specimen / Unknown Venipuncture / Unknown 01/25/2025 3:57 PM EDT 01/25/2025 3:57 PM EDT Davion EL LAB BLOOD ORDERABLES Nadege l Result Performing Organization Address [facility] Co de Phone Number [facility] [address] [place] [address], [place] [phone] * Lipid panel with reflex to direct LDL (01/25/2025 3:57 PM EDT) [facility] Cholesterol 167 0 - 200 mg/dL LAB CHEMISTRY METHOD 01/25/2025 7:11 PM EDT [facility] Triglycerides 119 0 - 150 mg/dL LAB CHEMISTRY METHOD 01/25/2025 7:11 PM EDT [facility] HDL 48 >=40 mg/dL LAB CHEMISTRY METHOD 01/25/2025 7:11 PM EDT [facility] LDL Calculated 95 0 - 100 mg/dL LAB CHEMISTRY METHOD 01/25/2025 7:11 PM EDT [facility] VLDL Cholesterol [place] 23.8 mg/dL LAB CHEMISTRY METHOD 01/25/2025 7:11 PM EDT [facility] Non HDL Chol. (LDL+VLDL) 119 <145 mg/dL LAB CHEMISTRY METHOD 01/25/2025 7:11 PM EDT [facility] Chol/HDL Ratio 3.5 0.0 - 4.4 LAB CHEMISTRY METHOD 01/25/2025 7:11 PM EDT [facility] Blood Venous blood specimen / Unknown Venipuncture / Unknown 01/25/2025 3:57 PM EDT 01/25/2025 3:57 PM EDT Davion EL LAB BLOOD ORDERABLES Nadege l Result [facility] [address] [place] [address], [place] [phone] * (ABNORMAL) Herpes simplex virus 1 and 2, IgG (01/25/2025 3:57 PM EDT) HSV 1 IgG 31.90(H) <=0.90 index belle LAB CHEMISTRY METHOD 01/26/2025 8:45 AM EDT [facility] HSV-1 IgG Interpretation Positive (A) Negative LAB CHEMISTRY METHOD 01/26/2025 8:45 AM EDT [facility] HSV 2 IgG 1.92(H) <=0.90 index belle LAB CHEMISTRY METHOD 01/26/2025 8:45 AM EDT [facility] HSV-2 IgG Interpretation Positive (A) Negative LAB CHEMISTRY METHOD 01/26/2025 8:45 AM EDT [facility] Blood Venous blood specimen / Unknown Venipuncture / Unknown 01/25/2025 3:57 PM EDT 01/25/2025 3:57 PM EDT us Davion EL LAB BLOOD ORDERABLES Nadege l Result [facility] [address] [place] [address], * (ABNORMAL) CBC auto differential (01/25/2025 3:57 PM EDT) WBC 13.5(H) 4.8 - 10.8 K/mcL LAB HEMETOLOGY METHOD 01/25/2025 6:40 PM EDT [facility] RBC 4.30(L) 4.50 - 5.50 M/mcL LAB HEMETOLOGY METHOD 01/25/2025 6:40 PM EDT [facility] Hemoglobin 12.8(L) 13.5 - 17.5 g/dL LAB HEMETOLOGY METHOD 01/25/2025 6:40 PM EDT [facility] Hematocrit 42.8 42.0 - 54.0 % LAB HEMETOLOGY METHOD 01/25/2025 6:40 PM EDT [facility] MCV 100.0(H) 79.0 - 98.0 FL LAB HEMETOLOGY METHOD 01/25/2025 6:40 PM EDT [facility] MCH 29.9 27.0 - 32.0 pcg LAB HEMETOLOGY METHOD 01/25/2025 6:40 PM EDT [facility] MCHC 29.9(L) 32.0 - 37.0 g/dL LAB HEMETOLOGY METHOD 01/25/2025 6:40 PM EDT [facility] RDW 12.5 11.0 - 15.0 % LAB HEMETOLOGY METHOD 01/25/2025 6:40 PM EDT [facility] Platelets 471(H) 130 - 400 K/mcL LAB HEMETOLOGY METHOD 01/25/2025 6:40 PM EDT [facility] MPV 9.5 7.0 - 11.0 FL LAB HEMETOLOGY METHOD 01/25/2025 6:40 PM EDT [facility] NRBC 0.0 <1.0 % LAB HEMETOLOGY METHOD 01/25/2025 6:40 PM EDT [facility] NRBC Absolute 0.00 <0.10 K/mcL LAB HEMETOLOGY METHOD 01/25/2025 6:40 PM EDT [facility] Neutrophils Relative 75.3 % LAB HEMETOLOGY METHOD 01/25/2025 6:40 PM EDT [facility] Lymphocytes Relative 17.2 % LAB HEMETOLOGY METHOD 01/25/2025 6:40 PM EDT [facility] Monocytes Relative 5.5 % LAB HEMETOLOGY METHOD 01/25/2025 6:40 PM [facility] Eosinophils Relative 1.2 % LAB HEMETOLOGY METHOD 01/25/2025 6:40 PM EDT [facility] Basophils Relative 0.4 % LAB HEMETOLOGY METHOD 01/25/2025 6:40 PM [facility] Immature Granulocytes Relative 0.4 % LAB HEMETOLOGY METHOD 01/25/2025 6:40 PM [facility] Neutrophils Absolute 10.13(H) 1.50 - 7.00 K/mcL LAB HEMETOLOGY METHOD 01/25/2025 6:40 PM [facility] Lymphocytes Absolute 2.31 1.00 - 5.00 K/mcL LAB HEMETOLOGY METHOD 01/25/2025 6:40 PM EDT [facility] Monocytes Absolute 0.74 0.20 - 1.00 K/mcL LAB HEMETOLOGY METHOD 01/25/2025 6:40 PM [facility] Eosinophils Absolute 0.16 0.00 - 0.50 K/mcL LAB HEMETOLOGY METHOD 01/25/2025 6:40 PM T [facility] Basophils Absolute 0.06 0.00 - 0.20 K/[facility] LAB HEMETOLOGY METHOD 01/25/2025 6:40 PM EDT [facility] Immature Granulocytes Absolute 0.05(H) 0.00 - 0.03 K/[facility] LAB HEMETOLOGY METHOD 01/25/2025 6:40 PM EDT [facility] Blood Venous blood specimen / Unknown Venipuncture / Unknown 01/25/2025 3:57 PM EDT 01/25/2025 3:57 PM EDT Davion EL LAB BLOOD ORDERABLES Nadege l Result Performing Organization Address City/[facility]/ZIP Co de Phone Number [facility] [address] [place] [address], [place] [phone] * Chlamydia trachomatis and Neisseria gonorrhoeae molecular study (01/25/2025 3:57 PM EDT) [facility] Neisseria gonorrhoeae PCR Negative Negative LAB MOLECULAR DIAGNOSTICS METHOD 01/26/2025 10:54 AM EDT [facility] Chlamydia trachomatis PCR Negative Negative LAB MOLECULAR DIAGNOSTICS METHOD 01/26/2025 10:54 AM EDT [facility] Swab First stream urine specimen / Unknown Non-blood Collection / Unknown 01/25/2025 3:57 PM EDT 01/25/2025 3:57 PM EDT Davion EL LAB MICROBIOLOGY - GENERA L ORDERABLES Final Result [facility] [address] [place] [address], [place] [phone] * (ABNORMAL) Vitamin D 25 hydroxy (01/25/2025 3:57 PM EDT) Pathologist [facility] Vit D, 25-Hydroxy 4.2(L) 30.0 - 80.0 ng/mL LAB CHEMISTRY METHOD 01/25/2025 6:58 PM EDT [facility] Blood Venous blood specimen / Unknown Venipuncture / Unknown 01/25/2025 3:57 PM EDT 01/25/2025 3:57 PM EDT us Davion EL LAB BLOOD ORDERABLES Nadege l Result [facility] [address] [place] [address], * (ABNORMAL) Comprehensive metabolic panel (01/25/2025 3:57 PM EDT) Sodium 139 133 - 145 mmol/L LAB CHEMISTRY METHOD 01/25/2025 7:11 PM [facility] Potassium 3.8 3.5 - 5.5 mmol/L LAB CHEMISTRY METHOD 01/25/2025 7:11 PM [facility] Chloride 105 96 - 110 mmol/L LAB CHEMISTRY METHOD 01/25/2025 7:11 PM [facility] CO2 28 21 - 32 mmol/L LAB CHEMISTRY METHOD 01/25/2025 7:11 PM [facility] Anion Gap 6 3 - 11 LAB CHEMISTRY METHOD 01/25/2025 7:11 PM [facility] Glucose 120(H) 70 - 100 mg/dL LAB CHEMISTRY METHOD 01/25/2025 7:11 PM [facility] BUN 8 5 - 25 mg/dL LAB CHEMISTRY METHOD 01/25/2025 7:11 PM [facility] Creatinine 1.00 0.70 - 1.30 mg/dL LAB CHEMISTRY METHOD 01/25/2025 7:11 PM [facility] eGFR 103 >=60 mL/min/1. 73m2 LAB CHEMISTRY METHOD 01/25/2025 7:11 PM [facility] Comment:Calculation based on the??Chronic Kidney Disease Epidemiology Collaboration (CKD-EPI) equation refit??without adjustment for race. BUN/Creatinine Ratio 8.0 LAB CHEMISTRY METHOD 01/25/2025 7:11 PM EDT [facility] Calcium 9.0 8.5 - 10.5 mg/dL LAB CHEMISTRY METHOD 01/25/2025 7:11 PM [facility] AST (SGOT) 20 10 - 42 unit/L LAB CHEMISTRY METHOD 01/25/2025 7:11 PM [facility] ALT (SGPT) 24 10 - 60 unit/L LAB CHEMISTRY METHOD 01/25/2025 7:11 PM [facility] Alkaline Phosphatase 108 42 - 121 unit/L LAB CHEMISTRY METHOD 01/25/2025 7:11 PM [facility] Total Protein 8.0 6.0 - 8.0 g/dL LAB CHEMISTRY METHOD 01/25/2025 7:11 PM [facility] Albumin 3.0(L) 3.2 - 5.0 g/dL LAB CHEMISTRY METHOD 01/25/2025 7:[facility] Total Bilirubin 0.6 0.0 - 1.4 mg/dL LAB CHEMISTRY METHOD 01/25/2025 7:11 PM EDT [facility] Blood Venous blood specimen / Unknown Venipuncture / Unknown 01/25/2025 3:57 PM EDT 01/25/2025 3:57 PM EDT us Davion EL LAB BLOOD ORDERABLES Nadege l Result [facility] [address] [place] [address], * XR Shoulder 2+ Views Right (01/25/2025 3:46 PM EDT) Anatomical Region Laterality Modality Upper Extremities, Shoulder Right Radi ographic Imaging 01/25/2025 6:41 PM EDT Impressions 01/25/2025 6:43 PM EDT Mild degenerative changes. -------- FINAL REPORT -------- Dictated By: Oliverio Cline Dictated Date: 01/25/2025 18:41 ET Assigned Physician: Oliverio Cline Reviewed and Electronically Signed By: Oliverio Cline Signed Date: 01/25/2025 18:43 ET Workstation ID: [id number] Transcribed By: Self Edit Transcribed Date: 01/25/2025 18:41 ET Narrative 01/25/2025 6:43 PM EDT XR SHOULDER 2+ VIEWS RIGHT Reason: shoulder pain right shoulder pain Comparison: None FINDINGS: Partially limited evaluation due to overlying soft tissues. ??Mild degenerative changes at acromioclavicular joint. Subchondral cystic changes at the glenoid fossa. ??Glenohumeral joint intact. ??No soft tissue calcifications adjacent to the humeral head. Procedure Note Oliverio Cline MD - 01/25/2025 XR SHOULDER 2+ VIEWS RIGHT Reason: shoulder pain right shoulder pain Comparison: None FINDINGS: Partially limited evaluation due to overlying soft tissues. Milddegenerative changes at acromioclavicular joint. Subchondral cysticchanges at the glenoid fossa. Glenohumeral joint intact. No soft tissuecalcifications adjacent to the humeral head. IMPRESSION: Mild degenerative changes. 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
--- NOTE | 2025-02-20 11:15 | MHC.OFFVISWM ---
VS Expanded 02/20/25 11:36 Height 6 ft 3 in Weight 510 lb BMI 63.7 Body Fat % 50.8 Body Fat Mass 259 Fat Free Mass 250.8 Visceral Fat Rating 42 Body Water % 38.9 Body Water Mass 198.2 Basal Metabolic Rate/Score 3,897 Intake Visit Reasons: TV Re-Est SWL BMI 63.7 Allergies No Known Allergies Allergy (Verified 02/20/25 11:15) Medication List - Last Reconciled 02/20/25 by Pradeep Thornton MD cholecalciferol (vitamin D3) 1,250 mcg PO QWEEK HPI HPI TV Re-Est SWL BMI 63.7: Details: Start time: 11.15am, End time: 11.38am ?I spent 18 minutes speaking with the patient on the phone plus an additional 5 minutes reviewing and updating records for a total of 23 minutes HPI Comments Details: Previous weight [place] efforts[place] [facility] Wakes up: 6am, Sleeps: 10pm Breakfast: skips Lunch: 3-4pm (sandwich) Dinner: 8-9pm (fast food) Snacks: snacks once before lunch (chips), between lunch and dinner (candy) Exercise: none Beverages: Coffee/tea: none, soda: (Pepsi or Mountain Dew a few times per week), juice: Powerade, ETOH: none PFSH Surgical History (Updated 02/15/25 @ 15:59 by Edna Chapa CMA) Hx of hand surgery History of surgical removal of keloid Family History Mother No problems noted. Father No problems noted. Brother No problems noted. Brother No problems noted. Brother No problems noted. Sister No problems noted. Sister No problems noted. Sister No problems noted. Sister No problems noted. Social History (Updated 02/15/25 @ 16:00 by Edna Chapa CMA) Alcohol intake: current Alcohol intake frequency: holidays/special occasions only Patient Tobacco Use Status: Never used Tobacco Telehealth Telehealth Telehealth Platform: Telephone Location of provider rendering services: practice address Location of patient: address on file Patient Identification confirmed using: Name, : Yes Telehealth method: voice only Patient verbally consented to treatment: Yes Patient verbally consented to billing insurance company: Yes Patient informed of any privacy concerns related to visit: Yes Minutes spent on Phone/Video with Pt.: 23 Assessment & Plan Assessment & Plan (1) Morbid obesity: Code(s): E66.01 - Morbid (severe) obesity due to excess calories Category: Medical Plan: 1) buy a blood pressure monitor from [employer], measure your blood pressure every morning and start sending me pictures of your blood pressure readings daily 2) send me a picture of your weight from your scale tomorrow morning 3) Buy the premade Premier protein shakes and the Fit Crunch protein bars from [employer] or [email or web address]. Let me know when you have them
[2025-02-20 11:36] VITALS: BMI 63.7
== END 2025-02-20 11:39 | disposition home or self-care (01) ==
LOC: HO.HBS 08:10
PROVIDERS: PCP Physician Assistant Medical; Visit Provider Surgery
DX: E66.01 Morbid (severe) obesity due to excess calories (principal); E66.813 Obesity, class 3; Z68.44 Body mass index [BMI] 60.0-69.9, adult
CPT/HCPCS: 99213

== ENCOUNTER 2025-05-30 10:16 | Outpatient (AMB) | payer OTHER, SELFPAY ==
--- NOTE | 2025-05-30 10:10 | A.OFFWM_ITS ---
Intake Intake Visit Reasons: TV BH Intake Allergies No Known Allergies Allergy (Verified 02/20/25 11:15) PFSH Surgical History (Updated 02/15/25 @ 15:59 by Edna Chapa CMA) Hx of hand surgery History of surgical removal of keloid Family History Mother No problems noted. Father No problems noted. Brother No problems noted. Brother No problems noted. Brother No problems noted. Sister No problems noted. Sister No problems noted. Sister No problems noted. Sister No problems noted. Social History (Updated 02/15/25 @ 16:00 by Edna Chapa CMA) Alcohol intake: current Alcohol intake frequency: holidays/special occasions only Patient Tobacco Use Status: Never used Tobacco Behavioral Health Assessment Weight Management Therapy Therapy Notes Details PT is a 34 years old male, who presents for initial visit to start BH assessment as part of surgical weight loss program. PT was initially referred by his PCP. However he was in the [facility] previously in 2022 and meet with this provider a BH assessment at which time he was cleared. Presenting Concerns Referral Source P-Provider. Reason for referral Completion of behavioral health assessment as part of process for weight-loss surgery. Precipitating Event Obesity Living Situation Current Living Situation Own At risk of losing current housing? No Satisfied with current living situation? Yes Comments PT lives alone. Food/Weight/Diet Expectations of change PT re-started the program at 520Lbs, and the most recent weight recorded was 449Lbs as of 05/24/25. PT is implementing the following: Current meal plan: Exercise plan: Scale: yes Communication w/ provider: mondays. Social History Family history and relationship PT is single and has no children. Has 4 sisters and 3 brothers. PT reports he comes from a 2-parent household, his parents are both alive. PT reports good family relationships. 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 Developmental history and status Speech issues. Social support Family. Some friends. Community support PCP Buddhism/Spirituality Islam. Cultural/Ethnic information -Guyanese. From [place]. Raised in [place] from couple years. Legal Involvement and History Current or historical involvement with the legal system? None reported Education Highest grade completed Associates degree. Preferred learning style Visual Currently enrolled in educational program? No Interested in further educational program? 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 Employment Employment Status [employer] Wants help to find employment? 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 None Service Service? No Mental Health and Addiction Treatment Current/Past substance abuse? No Comments Alcohol: on special educations or holidays. 1-2 drinks. Cigarettes/Tobacco: None. Cannabis/Edibles: None. Current/Past addictive behavior concerns? No Psychiatric history PT denies ever having been any type of counseling or MH treatment, including crisis or inpatient mental health. There is no history and/or current concern about SI/Sa and self-harm or other harm. Medical and Physical Health Summary Additional Medical History not covered in history None additional. Sexual History concerns None reported Physical exam in the last year? Yes Pain Screening Current pain? No Pain in the last few months? No Medications Is the patient compliant with medications? Yes Does the patient have Ferreira Guardian in place? Not applicable Does the patient use complimentary health approaches? No Trauma/Abuse History History of trauma? No Questionnaires PHQ-9 Over the last 2 weeks, how often have you been bothered by any of the following problems? 1. Little interest or pleasure in doing things: not at all 2. Feeling down, depressed, or hopeless: not at all 3. Trouble falling or staying asleep, or sleeping too much: several days 4. Feeling tired or having little energy: not at all 5. Poor appetite or overeating: not at all 6. Feeling bad about yourself - or that you are a failure or have let yourself or your family down: not at all 7. Trouble concentrating on things, such as reading the newspaper or watching television: not at all 8. Moving or speaking so slowly that other people could have noticed. Or the opposite - being so fidgety or restless that you have been moving around a lot more than usual: not at all 9. Thoughts that you would be better off or of hurting yourself in some way: not at all Total score: 1 Depression Screening Interpretation: Negative (From new PT pack completed on 02/15/25) Depression Screening Done: Yes Source: Developed by Drs. Chai Ruiz, Rosalind Bond, Kalia Aviles and colleagues, with an educational lexy from [employer]. Binge Eating Scale Group 1 A. I don't feel self-conscious about my wt. or body size when I'm with others. B. I feel concerned about how I look to others, but it normally does not make me fell disappointed with myself C. I do get self-conscious about my appearance and wt. which makes me feel disappointed in myself. D. I feel very self-conscious about my wt. and frequently I feel intense shame and disgust for myself. I try to avoid social contacts because of my self- consciousness. Response Group 1: A Group 2 A. I don't have any difficulty eating slowly in the proper manner. B. Although I seem to gobble down foods, I don't end up feeling stuffed because of eating to much. C. At times, I tend to eat quickly and then, I feel uncomfortably full afterwards. D. I have the habit of bolting down my food, without really chewing it. When this happens I usually feel uncomfortably stuffed because I've eaten to much. Response Group 2: A Group 3 A. I feel capable to control my eating urges when I want to. B. I feel like I have failed to control my eating more than the average person. C. I feel utterly helpless when it comes to feeling in control of my eating urges. D. Because I feel so helpless about controlling my eating I have become very desperate about trying to get control. Response Group 3: A Group 4 A. I don't have the habit of eating when I'm bored. B. I sometimes eat when I'm bored, but often I'm able to get busy and get my mind off food. C. I have a regular habit of eating when I'm bored, but occasionally, I can use some other activity to get my mind off eating. D. I have a strong habit of eating when I'm bored. Nothing seems to help me breath the habit. Response Group 4: A Group 5 A. I'm usually physically hungry when I eat something. B. Occasionally, I eat something on impulse even though I really am not hungry. C. I have the regular habit of eating foods, that I might not really enjoy, to satisfy a hungry feeling even though physically, I don't need the food. D. Although I'm not physically hungry, I get a hungry feeling in my mouth that only seems to be satisfied when I eat a food, like sandwich, that fills my mouth. Sometimes, when I eat the food to satisfy my mouth hunger, I then spit the food out so I won't gain weight. Response Group 5: A Group 6 A. I don't feel any guilt or self-hate after I overeat. B. After I overeat, occasionally I feel guilt or self-hate. C. Almost all the time I experience strong guilt or self-hate after I overeat. Response Group 6: A Group 7 A. I don't lose total control of my eating when dieting even after periods when I overeat. B. Sometimes when I eat a forbidden food on a diet, I feel like I blew it and eat even more. C. Frequently, I have the habit of saying to myself, I've blown it now, why not go all the way, when I overeat on a diet. When that happens I eat more. D. I have a regular habit of starting a strict diets for myself but I break the diets by going on an eating binge. My life seems to be either a feast or famine. Response Group 7: B Group 8 A. I rarely eat so much food that I feel uncomfortably stuffed afterwards. B. Usually about once a month, I each such a quantity of food, I end up feeling very stuffed. C. I have regular periods during the month when I eat large amounts of food, either at mealtime or at snacks. D. I eat so much food that I regularly feel quite uncomfortable after eating and sometimes a bit nauseous. Response Group 8: A Group 9 A. My level of calorie intake does not go up very high or go down very low on a regular basis. B. Sometimes after I overeat, I will try to reduce my caloric intake to almost nothing to compensate for the excess calories I've eaten. C. I have a regular habit of overeating during the night. It seems that my routine is not to be hungry in the morning but overeat in the evening. D. In my adult years, I have had week-long periods where I practically starve myself. This follows periods when I overeat. It seems I live a life of either feast or famine. Response Group 9: A Group 10 A. I usually am able to stop eating when I want to. I know when enough is enough. B. Every so often, I experience a compulsion to eat which I can't seem to control. C. Frequently, I experience strong urges to eat which I seem unable to control, but at other times I can control my eating urges. D. I feel incapable of controlling urges to eat. I have a fear of not being able to stop eating voluntarily. Response Group 10: A Group 11 A. I don't have any problem stopping eating when I feel full. B. I usually can stop eating when I feel full but occasionally overeat leaving me feeling uncomfortably stuffed. C. I have a problem stopping eating once I start and usually I feel uncomfortably stuffed after I eat a meal. D. Because I have a problem not being able to stop eating when I want, I sometimes have to induce vomiting to relieve my stuffed feeling. Response Group 11: A Group 12 A. I seem to eat just as much when I'm with others, Family social gatherings as when I'm by myself. B. Sometimes, when I'm with other persons, I don't eat as much as I want to eat because I'm self-conscious about my eating. C. Frequently, I eat only a small amount of food when others are present, because I'm very embarrassed about my eating. D. I feel so ashamed about overeating that I pick times to overeat when I know no one will see me. I feel like a closet eater. Response Group 12: A Group 13 A. I eat three meals a day with only an occasional between meal snack. B. I eat 3 meals a day, but I also normally snack between meals. C. When I am snacking heavily, I get in the habit of skipping regular meals. D. There are regular periods when I seem to be continually eating, with no planned meals. Response Group 13: B Group 14 A. I don't think much about trying to control unwanted eating urges. B. At least some of the time, I feel my thoughts are pre-occupied with trying to control my eating urges. C. I feel that frequently I spend much time thinking about how much I ate or about trying not to eat anymore. D. It seems to me that most of my waking hours are pre-occupied by thoughts about eating or not eating. I feel like I'm constantly struggling not to eat. Response Group 14: B Group 15 A. I don't think about food a great deal. B. I have strong craving for food but they last only for brief periods of time. C. I have days when I can't seem to think about anything else but food. D. Most of my days seem to be pre-occupied with thoughts about food. I feel like I live to eat. Response Group 15: A Group 16 A. I usually know whether or not I'm physically hungry. I take the right portion of food to satisfy me. B. Occasionally, I feel uncertain about knowing whether or not I'm physically hungry. A these times it's hard to know how much food I should take to satisfy me. C. Even though I might know how many calories I should eat, I don't have any idea what is a normal amount of food for me. Response Group 16: A Binge Eating Score: 3 Score less than 17 Minimal Risk Score between 18-26 Moderate Risk Score between 27-46 High Risk Assessment & Plan Assessment & Plan (1) Eating disorder: Code(s): F50.9 - Eating disorder, unspecified Qualifiers: Eating disorder type: unspecified eating disorder Qualified Code(s): F50.9 - Eating disorder, unspecified (2) Pre-bariatric surgery psychological evaluation: Code(s): Z71.89 - Other specified counseling Plan The patient was not cleared today as the assessment was not completed. The patient will return in 2-4 weeks to continue the evaluation. Next appointment: 06/27/25 at 9am PV. Telehealth [facility] Location of provider rendering services: other (Home office. [place], [place]) Location of patient: address on file Patient Identification confirmed using: Name, : Yes Telehealth method: voice only Patient verbally consented to treatment: Yes Patient verbally consented to billing insurance company: Yes Patient informed of any privacy concerns related to visit: Yes Minutes spent on Phone/Video with Pt.: 50 Coding Level of Care Code New Pt Tele Psy Diag Eval (24192) Patient Type New Diagnoses Eating disorder, unspecified type F50.9 Eating disorder type: unspecified eating disorder Pre-bariatric surgery psychological evaluation Z71.89 Time Spent (min) 50
--- OUTSIDE RECORDS SUMMARY | 2025-05-30 11:01 | XMS_ITS | Clinical Summary ---
Author Organization [address] Address [address] [place] [id number] Phone Care Team Providers Care Manager Pharmaceutical Name Role Phone Davion Zamora Primary Care Provider [phone] Allergies No known active allergies Medications ciclopirox (PENLAC) 8 % solution Apply to affected area daily, remove with rubbing alcohol every 7 days Active semaglutide (Wegovy) 0.25 mg/0.5 mL injection penIndications:S creen for STD (sexually transmitted disease),Routine general medical examination at a health care facility,Vitamin D deficiency,Subcl inical hypothyroidism,A cute pain of right shoulder Inject 0.25 mg under the skin every 7 (seven) days. 2 mL 3 5 Active diclofenac (VOLTAREN) 1 % topical gel Apply 4 gram four times daily to affected joint 100 g 3 5 Active ergocalciferol (VITAMIN D-2) 1,250 mcg (50,000 unit) capsule Take 1 capsule (50,000 Units total) by mouth 1 (one) time per week. 12 capsule 3 5 Active Active Problems Problem Noted Date Diagnosed Date Vitamin D deficiency 03/23/2023 Keloid 01/18/2023 Subclinical hypothyroidism 02/02/2021 Stutter 01/21/2021 G6PD deficiency 02/18/2020 Prolonged Q-T interval on ECG 02/18/2020 COVID-19 02/15/2020 Overview (10/18/2024): [facility] admission 01/20/20-01/29/20 Immunizations Name Administration Dates Next Due Tdap [...] BMI of 6 0.0-69.9, adult (CMS/HCC V24, CMS/HCC V28) DX:Morbid obesity wit h BMI of 60.0-69.9, adult ([facility]) Family History Medical History Relation Name Comments [...] ed Within the last 3 months, ho w many times did you visit the emergency [...] care for your loved ones. For example, child care center assistant director or elderly care for an older adult? [...] Start Date Job End Date work at [employer] Not on file Not on file Not on fi le Obstetrics History Last Filed Vital Signs Vital Sign Reading Time Taken Comments Blood Pressure 132/78 01/25/2025 3:03 PM EDT Pulse 104 01/25/2025 3:03 PM EDT Temperature 36.5 C (97.7 F) 01/25/2025 3:03 PM EDT Respiratory Rate 18 01/25/2025 3:03 PM EDT [...] 3:00 PM EDT Office Visit Adult Medicine [facility] [address] [place] [phone] Davion Zamora PA [address] [place] [address] Health Maintenance Due Date Last Done Comments Hepatitis B Vaccines (1 of 3 - 19+ 3-dose series) 2011 COVID-19 Vaccine (2023-2 5 season) 2024 Influenza Vaccine (#1) 2025 , 08/13/2023, 08/03/2021 Social Influencers of Health Screening 01/25/2026 01/25/2025 Cholesterol Screening (Lipid Panel) 01/25/2030 01/25/2025, 03/23/2023 DTaP,Tdap,and Td Vaccines (2 - Td or Tdap) 01/21/2031 01/21/2021 Depression Screening Completed 01/25/2025 HIV Screening Completed 01/25/2025, 01/26/2021 Hepatitis C [...] 5 Years) and At-Risk Patients (6 to 49 Years) Aged Out No longer eligible b ased on patient's age to complete this topic RSV Immunization Patients Under 20 months Aged Out No longer eligible b ased on patient's age to complete this topic Varicella Vaccines Aged Out No longer eligible based on patient's age to complete this topic Procedures Procedure Name Priority Date/Time Associated Diagnosis Comments HEPATITIS C ANTIBODY Routine 01/25/2025 3:57 PM EDT Screen for STD (sexually transmitted disease) HIV 1, 2 ANTIBODY, P24 ANTIGEN WITH REFLEX TO DIFFERENTIATION Routine 01/25/2025 3:57 PM EDT Screen for STD (sexually transmitted disease) LIPID PANEL WITH REFLEX TO DIRECT LDL Routine 01/25/2025 3:57 PM EDT Screen for STD (sexually transmitted disease) Routine general medical examination at a health care facility Vitamin D deficiency Subclinical hypothyroidism Acute pain of right shoulder from Last 3 Months or Most Recently Relevant to Health Maintenance Results * Hepatitis C antibody (01/25/2025 3:57 PM EDT) Hepatitis C Antibody Negative Negative LAB CHEMISTRY METHOD 01/25/2025 7:32 PM EDT [facility] Blood Venous blood specimen / Unknown Venipuncture / Unknown 01/25/2025 3:57 PM EDT 01/25/2025 3:57 PM EDT Davion EL LAB BLOOD ORDERABLES Nadege l Result [facility] [address] [place] [address], * HIV 1,2 antibody, p24 antigen with reflex to differentiation (01/25/2025 3:57 PM EDT) HIV Combo AB/AG Negative Negative LAB CHEMISTRY METHOD 01/25/2025 7:32 PM EDT [facility] Blood Venous blood specimen / Unknown Venipuncture / Unknown 01/25/2025 3:57 PM EDT 01/25/2025 3:57 PM EDT Narrative [facility] - 01/25/2025 7:32 PM EDT This assay is a 4th generation assay allowing for earlier detection of HIV infection by detecting the presence of the HIV-1 p24 antigen as well as the traditional antibodies to HIV type 1 (including group O) and type 2. Use of a 4th generation assay is the current CDC recommendation for HIV screening. Davion EL LAB BLOOD ORDERABLES Nadege l Result [facility] [address] [place] [address], [place] [phone] * Lipid panel with reflex to direct LDL (01/25/2025 3:57 PM EDT) Cholesterol 167 0 - 200 mg/dL LAB CHEMISTRY METHOD 01/25/2025 7:11 PM EDT [facility] Triglycerides 119 0 - 150 mg/dL LAB CHEMISTRY METHOD 01/25/2025 7:11 PM EDT [facility] HDL 48 >=40 mg/dL LAB CHEMISTRY METHOD 01/25/2025 7:11 PM EDT [facility] LDL Calculated 95 0 - 100 mg/dL LAB CHEMISTRY METHOD 01/25/2025 7:11 PM EDT [facility] VLDL Cholesterol [place] 23.8 mg/dL LAB CHEMISTRY METHOD 01/25/2025 7:11 PM EDT [facility] Non HDL Chol. (LDL+VLDL) 119 <145 mg/dL LAB CHEMISTRY METHOD 01/25/2025 7:11 PM EDT [facility] Chol/HDL Ratio 3.5 0.0 - 4.4 LAB CHEMISTRY METHOD 01/25/2025 7:11 PM EDT [facility] Blood Venous blood specimen / Unknown Venipuncture / Unknown 01/25/2025 3:57 PM EDT 01/25/2025 3:57 PM EDT Davion EL LAB BLOOD ORDERABLES Nadege l Result [facility] [address] [place] [address], from Last 3 Months or Most Recently Relevant to Health Maintenance Additional Health Concerns Infection Onset Date Last Indicated Herpes simplex 01/25/2025 01/25/2025 Insurance [facility] [employer] Care Teams Manager Pharmaceutical Relationship Specialty Start Date End Date Davion Zamora PA [address] [place] [phone] PCP - General Internal Medicine 12/30/20
--- OUTSIDE RECORDS SUMMARY | 2025-05-30 11:01 | XMS_ITS ---
Author Name [facility] Organization Unknown Care Team Organization Name Specialty Phone Email Start Date End Da siddhartha [facility] Davion Zamora Primary Care 08/24/2022
== END 2025-05-30 11:01 | disposition home or self-care (01) ==
LOC: HO.HBST 10:16
PROVIDERS: PCP Physician Assistant Medical; Visit Provider Counselor Mental Health
DX: F50.9 Eating disorder, unspecified (principal); Z71.89 Other specified counseling
CPT/HCPCS: 90791

== ENCOUNTER 2025-06-14 08:48 | Outpatient (REF) | payer OTHER, SELFPAY ==
--- NOTE | ~2025-06-14 | XR_ITS ---
EXAMINATION: XR CHEST CLINICAL INFORMATION: E66.01 - Morbid (severe) obesity due to excess calories COMPARISON: 07/13/2023. TECHNIQUE: 2 views of the chest were obtained. FINDINGS: The cardiac, hilar, and mediastinal contours are normal. The lungs are clear bilaterally. There is no pneumothorax or pleural effusion. There is no focal osseous or soft tissue abnormality. XR/XR chest 2V IMPRESSION: Normal chest. Electronically signed by: Austin Hwang MD 06/14/2025 09:42 AM EDT
--- NOTE | 2025-06-14 08:54 | ECG_ITS ---
Test Reason : mor obs Blood Pressure : */* mmHG Vent. Rate : 80 BPM Atrial Rate : 80 BPM P-R Int : 196 ms QRS Dur : 94 ms QT Int : 428 ms P-R-T Axes : 40 -4 39 degrees QTcB Int : 493 ms Normal sinus rhythm Prolonged QT Abnormal ECG When compared with ECG of 13-Jul-2023 10:49, Nonspecific T wave abnormality now evident in Lateral leads Referred By: Pradeep Thornton Electronically Signed By: BRIANNE FONTAINE
[2025-06-14 09:09] LABS: MANUAL DIFF FLAG NO
--- OUTSIDE RECORDS SUMMARY | 2025-06-14 09:43 | XMS_ITS | Clinical Summary ---
Author Organization [address] Address [address] [place] [phone] Phone Care Team Providers Care Cat Scan Tech Name Role Phone Davion Zamora Primary Care Provider [phone] Allergies No known active allergies Medications ciclopirox [...] on ECG 02/18/2020 COVID-19 02/15/2020 Overview (10/18/2024): [facility] admission 01/20/20-01/29/20 Immunizations Name Administration Dates Next [...] obesity wit h BMI of 60.0-69.9, adult ([facility]) Family History Medical History Relation Name [...] your loved ones. For example, child care assistant or elderly care for an older adult? 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 Not on file Not [...] 3:00 PM EDT Office Visit Adult Medicine [address] [phone] Davion Zamora, SIENNA [address] [place] [phone] Health Maintenance Due Date Last Done Comments Hepatitis B Vaccines (1 of 3 - 19+ 3-dose series) 2011 COVID-19 Vaccine ( - 2023-2 5 season) 2024 Influenza Vaccine (#1) 2025 [...] disease) Routine general medical examination at a [facility] facility Vitamin D deficiency Subclinical hypothyroidism Acute pain of right shoulder from Last 3 Months or Most Recently Relevant to Health Maintenance Results * Hepatitis C antibody (01/25/2025 3:57 PM EDT) Hepatitis C Antibody Negative Negative LAB CHEMISTRY METHOD 01/25/2025 7:[address] [facility] Blood Venous blood specimen / Unknown Venipuncture / Unknown 01/25/2025 3:57 PM EDT 01/25/2025 3:57 PM EDT Davion EL LAB BLOOD ORDERABLES Nadege l Result [facility] [address] [place] [address], * HIV 1,2 antibody, p24 antigen with reflex to differentiation (01/25/2025 3:57 PM EDT) HIV Combo AB/AG Negative Negative LAB CHEMISTRY METHOD 01/25/2025 7:[address] [facility] Blood Venous blood specimen / Unknown Venipuncture / Unknown 01/25/2025 3:57 PM EDT 01/25/2025 3:[address] [facility] - 01/25/2025 7:32 PM EDT [...] ORDERABLES Nadege l Result Performing Organization Address City/[facility]/ZIP Co de Phone Number [facility] [address] [place] [address], [place] [phone] * Lipid panel with reflex to direct LDL (01/25/2025 3:57 PM EDT) [facility] Cholesterol 167 0 - 200 mg/dL LAB CHEMISTRY METHOD 01/25/2025 7:[address] [facility] Triglycerides 119 0 - 150 mg/dL LAB CHEMISTRY METHOD 01/25/2025 7:[address] [facility] HDL 48 >=40 mg/dL LAB CHEMISTRY METHOD 01/25/2025 7:[address] [facility] LDL Calculated 95 0 - 100 mg/dL LAB CHEMISTRY METHOD 01/25/2025 7:[address] [facility] VLDL Cholesterol [place] 23.8 mg/dL LAB CHEMISTRY METHOD 01/25/2025 7:[address] [facility] Non HDL Chol. (LDL+VLDL) 119 <145 mg/dL LAB CHEMISTRY METHOD 01/25/2025 7:[address] [facility] Chol/HDL Ratio 3.5 0.0 - 4.4 LAB CHEMISTRY METHOD 01/25/2025 7:[address] [facility] Blood Venous blood specimen / Unknown Venipuncture / Unknown 01/25/2025 3:57 PM EDT 01/25/2025 3:57 PM EDT Davion EL LAB BLOOD ORDERABLES Nadege l Result Performing Organization Address City/[facility]/ZIP Co de Phone Number [facility] [address] [place] [address], from Last 3 Months or Most Recently Relevant to Health Maintenance Additional Health Concerns Infection Onset Date Last Indicated Herpes simplex 01/25/2025 01/25/2025 Insurance [facility] [employer] PLAN Care Teams Cat Scan Tech Relationship Specialty Start Date End Date Davion Zamora PA [address] [place] [address] PCP - General Internal Medicine 12/30/20
[2025-06-14 09:46] LABS: Hematocrit 41.2 % (42.0-52.0); Hemoglobin 12.6 g/dl (14.0-18.0); Imm Gran Abs Auto 0.04 X10*3/uL (0.00-0.03); Imm Gran Pct Auto 0.3 % (0.0-0.4); Lymphocytes Absolute Auto 2.2 X10*3/uL (1.2-4.9); Mean Corpuscular HGB Conc 30.6 g/dl (31.0-36.0); Mean Corpuscular Hemoglobin 29.8 pg (27.0-33.0); Mean Corpuscular Volume 97.4 fL (80.0-98.0); NRBC Abs Auto 0.000 X10*3/uL (0.0-0.012); NRBC Pct Auto 0.0 /100WBC (0.0-0.2); Platelet Count 436 X10*3/uL (160-400); Red Blood Count 4.23 X10*6/uL (4.60-5.80); White Blood Count 11.8 X10*3/uL (4.8-10.8)
[2025-06-14 10:19] LABS: Alanine Aminotransferase 29 U/L (0-40); Albumin Level 3.8 g/dL (3.5-5.0); Alkaline Phosphatase 87 U/L (39-117); Anion Gap 12 (12-20); Aspartate Amino Transferase 30 U/L (5-37); Blood Urea Nitrogen 13 mg/dL (9-16); Calcium 9.1 mg/dL (8.4-10.2); Carbon Dioxide 28 mmol/L (22-29); Chloride 108 mmol/L (96-108); Cholesterol 148 mg/dL (<200); Estimated Glomerular Filt Rate > 60; HDL Cholesterol 30 mg/dL (>40); Iron 33 mcg/dL (45-160); Percent Iron Saturation 16 % (15-50); Potassium 4.1 mmol/L (3.3-5.1); Sodium 144 mmol/L (135-145); Total Iron Binding Capacity 203 mcg/dL (228-428); Total Protein 8.2 g/dL (6.5-8.0); Triglycerides 107 mg/dL (<150); Unsaturated Iron Binding 170 ug/dL
[2025-06-14 10:31] LABS: Hemoglobin A1C 88.6638 umol/L; Total Hemoglobin (HGBA1C) 3314.8326 umol/L
[2025-06-14 10:49] LABS: Ferritin 363 ng/mL (20-250)
[2025-06-14 10:50] LABS: Folate 5.5 ng/mL (> or = 4.0); Vitamin B12 548 pg/mL (200-900)
== END 2025-06-14 08:49 | disposition home or self-care (01) ==
LOC: HO.XRAY 08:48
PROVIDERS: PCP Physician Assistant Medical; Visit Provider Surgery
DX: E66.01 Morbid (severe) obesity due to excess calories (principal)
CPT/HCPCS: 36415; 71046; 80053; 80061; 82306; 82607; 82728; 82746; 83036; 83525; 83540; 84425; 84443; 84590; 84630; 85025; 86140; 93005

== ENCOUNTER → 2025-06-14 08:54 | Outpatient (BNV) | payer OTHER, SELFPAY | PROVIDERS: PCP Physician Assistant Medical; Visit Provider Internal Medicine | DX: R94.31 Abnormal electrocardiogram [ECG] [EKG] (principal); E66.01 Morbid (severe) obesity due to excess calories | CPT/HCPCS: 93010 ==

== ENCOUNTER → 2025-06-14 09:13 | Outpatient (BNV) | payer OTHER, SELFPAY | PROVIDERS: PCP Physician Assistant Medical; Visit Provider Radiology Diagnostic Radiology | DX: E66.9 Obesity, unspecified (principal); Z68.32 Body mass index [BMI] 32.0-32.9, adult | CPT/HCPCS: 71046 ==

== ENCOUNTER 2025-06-27 09:06 | Outpatient (AMB) | payer OTHER, SELFPAY ==
--- NOTE | 2025-06-27 09:00 | A.OFFWM_ITS ---
Intake Intake Visit Reasons: TV BH Intake Part 2 Allergies No Known Allergies Allergy (Verified 02/20/25 11:15) PFSH Surgical History (Updated 02/15/25 @ 15:59 by dEna Chapa CMA) Hx of hand surgery History of surgical removal of keloid Family History Mother No problems noted. Father No problems noted. Brother No problems noted. Brother No problems noted. Brother No problems noted. Sister No problems noted. Sister No problems noted. Sister No problems noted. Sister No problems noted. Social History (Updated 02/15/25 @ 16:00 by Edna Chapa CMA) Alcohol intake: current Alcohol intake frequency: holidays/special occasions only Patient Tobacco Use Status: Never used Tobacco Behavioral Health Assessment Weight Management Therapy Therapy Notes Details PT is a 34 years old male, who presents for a second visit to complete BH assessment as part of surgical weight loss program. PT was in the [facility] previously in 2022 and meet with this provider a BH assessment at which time he was cleared. Presenting Concerns Referral Source [facility]-Provider. Reason for referral Completion of behavioral health assessment as part of process for weight-loss surgery. Precipitating Event Obesity Living Situation Current Living Situation Own At risk of losing current housing? No Satisfied with current living situation? Yes Comments PT lives alone. Food/Weight/Diet Expectations of change PT restarted the program on 03/10/2025 at 520Lbs Weight as of 05/24/25: 449Lbs Recent weight 06/24/25: 438Lbs The initial goal is to be around 400 lbs. before surgery. PT has a goal to adopt a healthy lifestyle and live a longer life, and be at least 250Lbs. PT is implementing the following: Current meal plan: a combination of shakes, bars, and 1 meal per day. (hard at first, but better now). Exercise plan: walk 2 miles on the track field at least 5 days a week. Scale: yes Communication w/ provider: Mondays. History/Relationship with food As he worked a lot, he was used to eating fast food daily, at times, he wouldn't have steady meals, would just order food when hungry, and didn't have portion control. Usually will have 1-2 meals per day and multiple snacks throughout the day, as well as multiple sports drinks. Example of meals before starting the program: Breakfast: skip Lunch: fast food mainly (burger w/ fries and soda) Dinner: Fast food (Turkish food, Popeyes, Means's) Snacks: multiple in the day. (cupcakes, soda, chocolate, candy like Skittles, MMs, chips) Drinks/Liquids: Coffee/tea: none, soda: (Pepsi or Mountain Dew a few times per week), juice: 4 at day either a Powerade/Gatorade or sports drinks, ETOH: none History/Relationship with weight PT reports he has been big most of his life. Younger, he was very active in playing football for college and working out. He notices a weight gain after stopping playing as he was not drafted and became slightly depressed. In the last 10 years, the patient's Lowest weight was 285Lbs and the highest 520Lbs. History/Relationship with dieting [facility]- in 2022. Exercise. Binge Eating Do you frequently eat large amounts of food in short periods of time, not feeling physically hungry? No Do you feel out of control when you eat a large amount of food in a short period of time? No Do you eat large amounts of food rapidly and typically alone? Yes Night Eating Do you wake up at least once during the night to eat? No If you wake up in the night, do you find that it is necessary to eat something in order to fall back asleep? No Do you have little or no appetite in the morning and feel very hungry in the evening, often overeating between dinner and when you go to bed? Yes Social History Family history and relationship PT is single and has no children. Has 4 sisters and 3 brothers. PT reports he comes from a 2-parent household, his parents are both alive. PT reports good family relationships. 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 Developmental history and status Speech issues. Social support Family. Some friends. Community support PCP Mosque/Spirituality Mormon. Cultural/Ethnic information -[place]itanian. From [place]. Raised in [place] couple years. Legal Involvement and History Current or historical involvement with the legal system? None reported Education Highest grade completed Bachelor's degree. Preferred learning style Visual Currently enrolled in educational program? No Interested in further educational program? 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 None Service Service? No Mental Health and Addiction Treatment Current/Past substance abuse? No Comments Alcohol: on special educations or holidays. 1-2 drinks. Cigarettes/Tobacco: None. Cannabis/Edibles: None. Current/Past addictive behavior concerns? No Psychiatric history PT denies ever having been any type of counseling or MH treatment, including crisis or inpatient mental health. There is no history and/or current concern about SI/Sa and self-harm or other harm. Medical and Physical Health Summary Additional Medical History not covered in history None additional. Sexual History concerns None reported Physical exam in the last year? Yes Pain Screening Current pain? No Pain in the last few months? No Medications Is the patient compliant with medications? Yes Does the patient have Ferreira Guardian in place? Not applicable Does the patient use complimentary health approaches? No Trauma/Abuse History History of trauma? No Questionnaires PHQ-9 Over the last 2 weeks, how often have you been bothered by any of the following problems? 1. Little interest or pleasure in doing things: not at all 2. Feeling down, depressed, or hopeless: not at all 3. Trouble falling or staying asleep, or sleeping too much: not at all 4. Feeling tired or having little energy: not at all 5. Poor appetite or overeating: not at all 6. Feeling bad about yourself - or that you are a failure or have let yourself or your family down: not at all 7. Trouble concentrating on things, such as reading the newspaper or watching television: not at all 8. Moving or speaking so slowly that other people could have noticed. Or the opposite - being so fidgety or restless that you have been moving around a lot more than usual: not at all 9. Thoughts that you would be better off or of hurting yourself in some way: not at all Total score: 0 Depression Screening Interpretation: Negative Depression Screening Done: Yes 12071 - PHQ-9 Billing: Yes Source: Developed by Drs. Cahi Ruiz, Rosalind Bond, Kalia Aviles and colleagues, with an educational lexy from [employer]. Binge Eating Scale Group 1 A. I don't feel self-conscious about my wt. or body size when I'm with others. B. I feel concerned about how I look to others, but it normally does not make me fell disappointed with myself C. I do get self-conscious about my appearance and wt. which makes me feel disappointed in myself. D. I feel very self-conscious about my wt. and frequently I feel intense shame and disgust for myself. I try to avoid social contacts because of my self- consciousness. Response Group 1: A Group 2 A. I don't have any difficulty eating slowly in the proper manner. B. Although I seem to gobble down foods, I don't end up feeling stuffed because of eating to much. C. At times, I tend to eat quickly and then, I feel uncomfortably full afterwards. D. I have the habit of bolting down my food, without really chewing it. When this happens I usually feel uncomfortably stuffed because I've eaten to much. Response Group 2: A Group 3 A. I feel capable to control my eating urges when I want to. B. I feel like I have failed to control my eating more than the average person. C. I feel utterly helpless when it comes to feeling in control of my eating urges. D. Because I feel so helpless about controlling my eating I have become very desperate about trying to get control. Response Group 3: A Group 4 A. I don't have the habit of eating when I'm bored. B. I sometimes eat when I'm bored, but often I'm able to get busy and get my mind off food. C. I have a regular habit of eating when I'm bored, but occasionally, I can use some other activity to get my mind off eating. D. I have a strong habit of eating when I'm bored. Nothing seems to help me breath the habit. Response Group 4: A Group 5 A. I'm usually physically hungry when I eat something. B. Occasionally, I eat something on impulse even though I really am not hungry. C. I have the regular habit of eating foods, that I might not really enjoy, to satisfy a hungry feeling even though physically, I don't need the food. D. Although I'm not physically hungry, I get a hungry feeling in my mouth that only seems to be satisfied when I eat a food, like sandwich, that fills my mouth. Sometimes, when I eat the food to satisfy my mouth hunger, I then spit the food out so I won't gain weight. Response Group 5: A Group 6 A. I don't feel any guilt or self-hate after I overeat. B. After I overeat, occasionally I feel guilt or self-hate. C. Almost all the time I experience strong guilt or self-hate after I overeat. Response Group 6: A Group 7 A. I don't lose total control of my eating when dieting even after periods when I overeat. B. Sometimes when I eat a forbidden food on a diet, I feel like I blew it and eat even more. C. Frequently, I have the habit of saying to myself, I've blown it now, why not go all the way, when I overeat on a diet. When that happens I eat more. D. I have a regular habit of starting a strict diets for myself but I break the diets by going on an eating binge. My life seems to be either a feast or famine. Response Group 7: B Group 8 A. I rarely eat so much food that I feel uncomfortably stuffed afterwards. B. Usually about once a month, I each such a quantity of food, I end up feeling very stuffed. C. I have regular periods during the month when I eat large amounts of food, either at mealtime or at snacks. D. I eat so much food that I regularly feel quite uncomfortable after eating and sometimes a bit nauseous. Response Group 8: A Group 9 A. My level of calorie intake does not go up very high or go down very low on a regular basis. B. Sometimes after I overeat, I will try to reduce my caloric intake to almost nothing to compensate for the excess calories I've eaten. C. I have a regular habit of overeating during the night. It seems that my routine is not to be hungry in the morning but overeat in the evening. D. In my adult years, I have had week-long periods where I practically starve myself. This follows periods when I overeat. It seems I live a life of either feast or famine. Response Group 9: A Group 10 A. I usually am able to stop eating when I want to. I know when enough is enough. B. Every so often, I experience a compulsion to eat which I can't seem to control. C. Frequently, I experience strong urges to eat which I seem unable to control, but at other times I can control my eating urges. D. I feel incapable of controlling urges to eat. I have a fear of not being able to stop eating voluntarily. Response Group 10: A Group 11 A. I don't have any problem stopping eating when I feel full. B. I usually can stop eating when I feel full but occasionally overeat leaving me feeling uncomfortably stuffed. C. I have a problem stopping eating once I start and usually I feel uncomfortably stuffed after I eat a meal. D. Because I have a problem not being able to stop eating when I want, I sometimes have to induce vomiting to relieve my stuffed feeling. Response Group 11: A Group 12 A. I seem to eat just as much when I'm with others, Family social gatherings as when I'm by myself. B. Sometimes, when I'm with other persons, I don't eat as much as I want to eat because I'm self-conscious about my eating. C. Frequently, I eat only a small amount of food when others are present, because I'm very embarrassed about my eating. D. I feel so ashamed about overeating that I pick times to overeat when I know no one will see me. I feel like a closet eater. Response Group 12: A Group 13 A. I eat three meals a day with only an occasional between meal snack. B. I eat 3 meals a day, but I also normally snack between meals. C. When I am snacking heavily, I get in the habit of skipping regular meals. D. There are regular periods when I seem to be continually eating, with no planned meals. Response Group 13: B Group 14 A. I don't think much about trying to control unwanted eating urges. B. At least some of the time, I feel my thoughts are pre-occupied with trying to control my eating urges. C. I feel that frequently I spend much time thinking about how much I ate or about trying not to eat anymore. D. It seems to me that most of my waking hours are pre-occupied by thoughts about eating or not eating. I feel like I'm constantly struggling not to eat. Response Group 14: B Group 15 A. I don't think about food a great deal. B. I have strong craving for food but they last only for brief periods of time. C. I have days when I can't seem to think about anything else but food. D. Most of my days seem to be pre-occupied with thoughts about food. I feel like I live to eat. Response Group 15: A Group 16 A. I usually know whether or not I'm physically hungry. I take the right portion of food to satisfy me. B. Occasionally, I feel uncertain about knowing whether or not I'm physically hungry. A these times it's hard to know how much food I should take to satisfy me. C. Even though I might know how many calories I should eat, I don't have any idea what is a normal amount of food for me. Response Group 16: A Binge Eating Score: 3 Score less than 17 Minimal Risk Score between 18-26 Moderate Risk Score between 27-46 High Risk Assessment & Plan Assessment & Plan (1) Adjustment disorder: Code(s): F43.20 - Adjustment disorder, unspecified Qualifiers: Adjustment disorder type: unspecified type Qualified Code(s): F43.20 - Adjustment disorder, unspecified (2) Encounter for psychological assessment prior to bariatric surgery: Code(s): Z71.89 - Other specified counseling Plan Following completion of the assessment, a review of the Binge Eating Scale and PHQ-9 scores, mental status evaluation, and patient self-report, there are no current behavioral health risks or concerns that would preclude proceeding with bariatric surgery. The patient is cleared from a behavioral health perspective and will return in approximately 6?8 weeks for preoperative support. * Next appointment: 08/15/25 at 9:00 AM (phone visit). Telehealth Telehealth Telehealth Platform: [employer] Location of provider rendering services: other (Home office. [place], [place]) Location of patient: address on file Patient Identification confirmed using: Name, : Yes Telehealth method: voice only Patient verbally consented to treatment: Yes Patient verbally consented to billing insurance company: Yes Patient informed of any privacy concerns related to visit: Yes Minutes spent on Phone/Video with Pt.: 55 Coding Level of Care Code Established Pt Tele Psytx >53 mins (19962) Patient Type Established Diagnoses Adjustment disorder, unspecified type F43.20 Adjustment disorder type: unspecified type Encounter for psychological assessment prior to bariatric surgery Z71.89 Additional Codes PHQ-9 - 50956 - PHQ-9 Billing: Yes ([id number]) Time Spent (min) 55
--- OUTSIDE RECORDS SUMMARY | 2025-06-27 10:25 | XMS_ITS | Clinical Summary ---
Author Organization [address] Address [address] [place] [phone] Phone Care Team Providers Care People Greeter Name Role Phone Davion Zamora Primary Care Provider [phone] Allergies No known active allergies Medications ciclopirox [...] on ECG 02/18/2020 COVID-19 02/15/2020 Overview (10/18/2024): [facility] [place] admission 01/20/20-01/29/20 Immunizations Name Administration Dates Next [...] obesity wit h BMI of 60.0-69.9, adult ([facility]) Family History Medical History Relation Name Comments [...] care for your loved ones. For example, early childhood director or elderly care for an older [...] Start Date Job End Date work at [employer] Not on file Not on file Not [...] 3:00 PM EDT Office Visit Adult Medicine [address] [phone] Davion Zamora PA [address] [place] [phone] Health Maintenance Due Date Last Done Comments Hepatitis B Vaccines (1 of 3 - 19+ 3-dose series) 2011 COVID-19 Vaccine (2023-2 5 season) 2025 Influenza Vaccine (#1) 2025 , 08/13/2023, 08/03/2021 [...] Procedure Name Priority Date/Time Associated Diagnosis Comments EXTERNAL CLINICAL LAB 06/14/2025 EXTERNAL CLINICAL LAB 06/14/2025 EXTERNAL CLINICAL LAB 06/14/2025 EXTERNAL CLINICAL LAB 06/14/2025 HEPATITIS C ANTIBODY Routine 01/25/2025 3:57 PM EDT Screen for STD (sexually transmitted disease) HIV 1, 2 ANTIBODY, P24 ANTIGEN WITH REFLEX TO DIFFERENTIATION Routine 01/25/2025 3:57 PM EDT Screen for STD (sexually transmitted disease) LIPID PANEL WITH REFLEX TO DIRECT LDL Routine 01/25/2025 3:57 PM EDT Screen for STD (sexually transmitted disease) Rout[facility] Vitamin D deficiency Subclinical hypothyroidism Acute pain of right shoulder from Last 3 Months or Most Recently Relevant to Health Maintenance Results * External clinical lab (06/14/2025) Only the most recent of4 resultswithin the time period is included. Provider [facility] LAB BLOOD ORDERABLES Fin al Result * Hepatitis C antibody (01/25/2025 3:57 PM EDT) [facility] Hepatitis C Antibody Negative Negative LAB CHEMISTRY METHOD 01/25/2025 7:32 PM EDT [facility] Blood Venous blood specimen / Unknown Venipuncture / Unknown 01/25/2025 3:57 PM EDT 01/25/2025 3:57 PM EDT Davion EL LAB BLOOD ORDERABLES Nadege l Result [facility] [address] [place] [address], * HIV 1,2 antibody, p24 antigen with reflex to differentiation (01/25/2025 3:57 PM EDT) [facility] HIV Combo AB/AG Negative Negative LAB CHEMISTRY METHOD 01/25/2025 7:32 PM EDT [facility] Blood Venous blood specimen / Unknown Venipuncture / Unknown 01/25/2025 3:57 PM EDT 01/25/2025 3:57 PM EDT Narrative [facility] - 01/25/2025 7:32 PM EDT [...] screening. Davion EL LAB BLOOD ORDERABLES Nadege dalton Result [facility] [address] [place] [address], * Lipid panel with reflex to direct LDL (01/25/2025 3:57 PM EDT) [facility] Cholesterol 167 0 - 200 mg/dL LAB CHEMISTRY METHOD 01/25/2025 7:11 PM EDT [facility] Triglycerides 119 0 - 150 mg/dL LAB CHEMISTRY METHOD 01/25/2025 7:11 PM EDT [facility] HDL 48 >=40 mg/dL LAB CHEMISTRY METHOD [facility] LDL Calculated 95 0 - 100 mg/dL LAB CHEMISTRY METHOD 01/25/2025 7:11 PM EDT [facility] VLDL Cholesterol [place] 23.8 mg/dL LAB CHEMISTRY METHOD 01/25/2025 7:11 PM EDT [facility] Non HDL Chol. (LDL+VLDL) 119 <145 mg/dL LAB CHEMISTRY METHOD 01/25/2025 7:11 PM EDT [facility] Chol/HDL Ratio 3.5 0.0 - 4.4 LAB CHEMISTRY METHOD 01/25/2025 7:11 PM EDT [facility] Blood Venous blood specimen / Unknown Venipuncture / Unknown 01/25/2025 3:57 PM EDT 01/25/2025 3:57 PM EDT Davion EL LAB BLOOD ORDERABLES Nadege l Result [facility] [address] [place] [address], from Last 3 Months or Most Recently Relevant to Health Maintenance Additional Health Concerns Infection Onset Date Last Indicated Herpes simplex 01/25/2025 01/25/2025 Insurance [facility] [employer] Care Teams People Greeter Relationship Specialty Start Date End Date Davion Zamora PA [address] [place] [id number] PCP - General Internal Medicine 12/30/20
== END 2025-06-27 09:52 | disposition home or self-care (01) ==
LOC: HO.HBST 09:06
PROVIDERS: PCP Physician Assistant Medical; Visit Provider Counselor Mental Health
DX: F43.20 Adjustment disorder, unspecified (principal); Z71.89 Other specified counseling
CPT/HCPCS: 90837

== ENCOUNTER 2025-08-19 09:09 | Outpatient (AMB) | payer OTHER, SELFPAY ==
--- NOTE | 2025-08-19 09:05 | MHC.WMTHER ---
Intake Intake Visit Reasons: TV BH F/U Allergies No Known Allergies Allergy (Verified 02/20/25 11:15) PFSH Medical History (Updated 06/28/25 @ 22:09 by Pradeep Thornton MD) Vitamin A deficiency Surgical History (Updated 02/15/25 @ 15:59 by Edna Chapa CMA) Hx of hand surgery History of surgical removal of keloid Family History Mother No problems noted. Father No problems noted. Brother No problems noted. Brother No problems noted. Brother No problems noted. Sister No problems noted. Sister No problems noted. Sister No problems noted. Sister No problems noted. Social History (Updated 02/15/25 @ 16:00 by Edna Chapa CMA) Alcohol intake: current Alcohol intake frequency: holidays/special occasions only Patient Tobacco Use Status: Never used Tobacco Behavioral Health Assessment Weight Management Therapy Therapy Notes Details Subjective: Patient reports continued adherence to meal and exercise plan, and maintains biweekly communication with the surgeon. As of 08/09/2025, weight is 427 lbs, reflecting a 93 lb loss since program initiation in February 2025. Patient endorses increased energy and confidence regarding progress. Objective: Patient participated in a pre-operative behavioral health appointment via telephone. Functioning, challenges, and progress were reviewed. Reflective listening and habit-building techniques were discussed to support maintenance of current gains and achievement of pre-operative weight goal (target: 400 lbs for bariatric surgery scheduling). Strategies for adherence during the holiday season were provided. PHQ-9 administered. Assessment/Response: Mental status: WNL Risk reported/identified: None. Food/Weight/Diet Expectations of change PT restarted the program on 03/10/2025 at 520Lbs Weight 05/24/25: 449Lbs Weight 06/24/25: 438Lbs weight 08/09/25: 427Lbs The initial goal is to be around 400 lbs. before surgery. PT has a goal to adopt a healthy lifestyle and live a longer life, and be at least 250Lbs. PT is implementing the following: Current meal plan: a combination of shakes, bars, and 1 meal per day. Exercise plan: walk 2 miles on the track field at least 5 days a week. Scale: yes Communication w/ provider: every 2 weeks/Fridays. Questionnaires PHQ-9 Over the last 2 weeks, how often have you been bothered by any of the following problems? 1. Little interest or pleasure in doing things: not at all 2. Feeling down, depressed, or hopeless: not at all 3. Trouble falling or staying asleep, or sleeping too much: not at all 4. Feeling tired or having little energy: not at all 5. Poor appetite or overeating: not at all 6. Feeling bad about yourself - or that you are a failure or have let yourself or your family down: not at all 7. Trouble concentrating on things, such as reading the newspaper or watching television: not at all 8. Moving or speaking so slowly that other people could have noticed. Or the opposite - being so fidgety or restless that you have been moving around a lot more than usual: not at all 9. Thoughts that you would be better off or of hurting yourself in some way: not at all Total score: 0 Depression Screening Interpretation: Negative Depression Screening Done: Yes 81020 - PHQ-9 Billing: Yes Source: Developed by Drs. Chai Ruiz, Rosalind Bond, Kalia Aviles and colleagues, with an educational lexy from [employer]. Assessment & Plan Assessment & Plan (1) Adjustment disorder: Code(s): F43.20 - Adjustment disorder, unspecified Plan Patient remains cleared from a behavioral health perspective for surgery. Follow-up scheduled for 1?4 weeks post-operatively. Telehealth Telehealth [facility] Location of provider rendering services: other (Home office. [place], [place]) Location of patient: address on file Patient Identification confirmed using: Name, : Yes Telehealth method: voice only Patient verbally consented to treatment: Yes Patient verbally consented to billing insurance company: Yes Patient informed of any privacy concerns related to visit: Yes Minutes spent on Phone/Video with Pt.: 30 [place] [address] Tele Psytx 30 mins Patient Type Established Diagnoses Adjustment disorder F43.20 Additional Codes PHQ-9 - 82816 - PHQ-9 Billing: Yes ([id number]) Time Spent (min) 30
== END 2025-08-19 09:40 | disposition home or self-care (01) ==
LOC: HO.HBST 09:09
PROVIDERS: PCP Physician Assistant Medical; Visit Provider Counselor Mental Health
DX: F43.20 Adjustment disorder, unspecified (principal)
CPT/HCPCS: 90832

== ENCOUNTER 2025-09-30 10:03 | Outpatient (REF) | payer OTHER, SELFPAY ==
--- NOTE | ~2025-09-30 | FL_ITS ---
EXAMINATION: XR FLUOROSCOPY UPPER GI SERIES CLINICAL INFORMATION: Morbid obesity secondary to excess calories. Preop bariatric. COMPARISON: None TECHNIQUE: Fluoroscopic air contrast upper GI examination was performed utilizing standard techniques with thin and thick barium and effervescent granules. Numerous spot images were obtained. Several fluoroscopic image hold cine sequences were also obtained. FINDINGS: UPPER GI SERIES: Lateral cine images of the oropharynx and hypopharynx demonstrate normal swallow mechanism with normal epiglottic inversion and soft palate elevation. No laryngeal penetration, glottic or subglottic aspiration identified. Hypopharyngeal structures appear normal without evidence of mass or diverticulum. There was no significant cricopharyngeal achalasia. Dual and single contrast images of the esophagus demonstrate normal caliber, contour, and mucosal pattern. No evidence of stricture, mass, or ulcerations identified. Esophageal peristalsis was mildly disordered. Small type I hiatus hernia present. No significant gastroesophageal reflux was seen during the course of the examination. Dual contrast and single contrast images of the stomach demonstrated normal contour and mucosal pattern without evidence of mass, ulceration, or other abnormality. Normal gastric rugal fold pattern. Contrast freely passed into the gastric antrum and duodenal bulb without delay. Single and air-contrast images of the duodenal bulb demonstrate no abnormality. The duodenal sweep has a normal appearance, course, and mucosal fold appearance. Limited imaging of the proximal small bowel demonstrated no abnormality. FLUOROSCOPY TIME: 2 minutes, 25 seconds. Number of Spot Images:9 Number of cines obtained: 8 DOSE AREA PRODUCT: [id number] uGy-m2 (microgray-meter squared) FL/FL upper GI w air IMPRESSION: 1. Mildly disordered esophageal peristalsis. 2. Small type I hiatus hernia. 3. No definite gastroesophageal reflux identified during the course of the examination. 4. Normal-appearing stomach and duodenum. Electronically signed by: Austin Hwang MD 09/30/2025 11:57 AM EST
== END 2025-09-30 10:04 | disposition home or self-care (01) ==
LOC: HO.XRAY 10:03
PROVIDERS: PCP Physician Assistant Medical; Visit Provider Surgery
DX: Z01.818 Encounter for other preprocedural examination (principal); E66.01 Morbid (severe) obesity due to excess calories
CPT/HCPCS: 74246

== ENCOUNTER → 2025-09-30 10:12 | Outpatient (BNV) | payer OTHER, SELFPAY | PROVIDERS: PCP Physician Assistant Medical; Visit Provider Radiology Diagnostic Radiology | DX: K44.9 Diaphragmatic hernia without obstruction or gangrene (principal); E66.01 Morbid (severe) obesity due to excess calories; Z68.44 Body mass index [BMI] 60.0-69.9, adult; K22.4 Dyskinesia of esophagus | CPT/HCPCS: 74246 ==